=== PATIENT | male | born 1945 | race Caucasian/White ===

== ENCOUNTER → 2018-07-14 10:21 | Outpatient (CLI) | payer MEDICARE, SELFPAY ==
--- NOTE | 2018-07-14 10:16 | DI.REPORT_ITS ---
SYMPTOM/DIAGNOSIS: RIGHT KNEE PAIN RIGHT KNEE: 07/14 Two views were obtained. There may be mild narrowing of the medial tibial femoral cartilaginous joint space. Minimal hypertrophic spurring of the bones of the knee noted. 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
== END ==
PROVIDERS: PCP General Practice; Visit Provider Physician Assistant
DX: M25.561 Pain in right knee (principal); M17.11 Unilateral primary osteoarthritis, right knee; M23.91 Unspecified internal derangement of right knee
CPT/HCPCS: 73560; 99213

== ENCOUNTER → 2018-07-20 01:37 | Outpatient (CLI) | payer MEDICARE, SELFPAY ==
--- NOTE | 2018-07-20 10:15 | DI.REPORT_ITS ---
SYMPTOMS/DIAGNOSIS: RT INTERNAL DERANGEMENT, PAIN MRI OF THE RIGHT KNEE: Comparison is made with plain films dated . Fat suppressed T 2 axial, proton density and fat suppressed T 2 sagittal and coronal and proton density oblique sagittal sequences were performed. The anterior cruciate ligament is disrupted. The tibia is abnormally subluxed anteriorly with respect to the distal femur. The posterior cruciate ligament and medial and lateral collateral ligaments appear intact. There is mild edema in the lower quadriceps tendon and near the lower pole of the patella, in the proximal patellar tendon which could indicate partial tears. There is some anterior soft tissue edema. There is some thinning of the lateral patellar facet cartilage but no focal defect or evidence of fracture. The lateral meniscus shows degenerative change. The medial meniscus is grossly abnormal. No history of previous surgery is given. There is a horizontally oriented tear in the posterior horn of the medial meniscus extending to the inferior articular surface. The medial meniscus appears somewhat diminutive which could indicate degenerative change. No definite displaced fragment is seen. There is cartilage irregularity of the medial femoral condyle. IMPRESSION: Full thickness tear of the anterior cruciate ligament. Inferior surfacing horizontal tear of the posterior horn and body of the medial meniscus superimposed. Question of mild partial tear vs tendinosis of the distal quadriceps and proximal patellar tendons.
== END ==
PROVIDERS: PCP General Practice; Visit Provider Orthopaedic Surgery
DX: M25.561 Pain in right knee (principal); M23.91 Unspecified internal derangement of right knee; S83.521A Sprain of posterior cruciate ligament of right knee, initial encounter; S83.511A Sprain of anterior cruciate ligament of right knee, initial encounter
CPT/HCPCS: 73721

== ENCOUNTER → 2018-07-22 09:15 | Outpatient (CLI) | payer MEDICARE, SELFPAY | PROVIDERS: PCP General Practice; Visit Provider Orthopaedic Surgery | DX: M25.511 Pain in right shoulder (principal); S83.241D Other tear of medial meniscus, current injury, right knee, subsequent encounter; X58.XXXD Exposure to other specified factors, subsequent encounter; M75.81 Other shoulder lesions, right shoulder; I10 Essential (primary) hypertension | CPT/HCPCS: 99213 ==

== ENCOUNTER 2018-08-06 08:56 | Outpatient (CLI) | payer MEDICARE, SELFPAY ==
[2018-08-06 09:26] LABS: HCT 37.8 % (40.0-50.0); HGB 13.1 g/dL (13.5-17.5); Mean Corp. HGB Concentration 34.7 g/dL (32.0-36.0); Mean Corpuscular Hemoglobin 29.4 pg (27.0-33.0); Mean Corpuscular Volume 84.9 fL (80-95); Mean Platelet Volume 8.3 fL (8.0-11.0); Platelet Count 212 x1000/uL (130-400); RBC 4.45 m/cumm (4.50-6.00); RBC Distribution Width 14.2 % (11.8-14.1); White Blood Cell Count 4.71 k/cumm (4.4-10.8)
[2018-08-06 10:44] LABS: ALT 32 U/L (12-78); AST 31 U/L (15-37); Albumin 3.8 g/dL (3.4-5.0); Alkaline Phosphatase 76 U/L (46-116); Anion Gap 6.7 mmol/L (3-11); BUN 12 mg/dL (7-18); Bilirubin, Total 0.4 mg/dL (0.2-1.0); CO2 26.3 mmol/L (21.0-32.0); CREATININE 1.05 mg/dL (0.70-1.30); Calcium 8.6 mg/dL (8.5-10.1); Chloride 94 mmol/L (98-107); Glucose 91 mg/dL (70-100); Potassium 4.7 mmol/L (3.5-5.1); Sodium 127 mmol/L (136-145); Total Protein 6.6 g/dL (6.4-8.2)
== END 2018-08-06 09:16 ==
PROVIDERS: PCP General Practice; Referring Provider Neurological Surgery; Visit Provider General Practice
DX: Z01.818 Encounter for other preprocedural examination (principal); Z01.812 Encounter for preprocedural laboratory examination; R69 Illness, unspecified
CPT/HCPCS: 36415; 80053; 85027

== ENCOUNTER 2018-09-29 01:09 | Outpatient (CLI) | payer MEDICARE, SELFPAY ==
--- NOTE | 2018-09-29 12:00 | DI.US_ITS ---
SYMPTOM/DIAGNOSIS: SUPRAPUBIC MASS, ? BLADDER MASS RENAL ULTRASOUND: The right kidney measures 10.9 by 4.7 by 4.8 cm. The left kidney measures 10.1 by 5.4 by 5.2 cm. The ureteral jets were not visualized. The prostatic volume is 29 cc's. The prevoid bladder contains 121 cc's. The postvoid bladder contains 6 cc's. A scan of the right lower quadrant revealed no obvious mass or other abnormality. If there is further specific clinical question regarding the status of this patient, then further assessment with CT is suggested. SUMMARY: The prostatic volume is top limits of normal in size. The examination is otherwise unremarkable.
== END 2018-09-29 01:29 ==
PROVIDERS: PCP General Practice; Visit Provider General Practice
DX: R10.31 Right lower quadrant pain (principal); R19.03 Right lower quadrant abdominal swelling, mass and lump
CPT/HCPCS: 76770

== ENCOUNTER 2018-10-11 06:36 | Day surgery (SDC) | payer MEDICARE, SELFPAY ==
--- NOTE | 2018-10-09 09:09 | POEE_ITS ---
History of Present Illness Chief Complaint: Progressive decreased vision, left eye Narrative: The patient is a 73-year-old male with history of progressive decreased vision in both eyes at both distance and near. On examination he was noted to have moderate bilateral nuclear cataracts with posterior subcapsular cataract of the right eye. He was significantly symptomatically he desired cataract surgery and attempt to improve and maximize his vision. NOTE: The Chief Complaint, HPI, Past Medical History, Past Surgical History, Family History, Social History, Medications, and complete Ophthalmic Exam with detailed Assessment and Plan have already been documented in the patient's outpatient ophthalmic record and are not covered again in detail here. [facility] Family History Mother No problems noted. Father Heart disease Medical History Nuclear sclerotic cataract of right eye (Acute) Nuclear sclerotic cataract of left eye (Acute) Age-related macular degeneration, dry, left eye (Chronic) Age-related macular degeneration, dry, right eye (Chronic) Posterior subcapsular age-related cataract, right eye (Acute) Anxiety Chronic low back pain Essential hypertension Gastroesophageal reflux disease Spinal stenosis Social History Smoking/Tobacco Use Status: Former Tobacco Use Surgical History Colonoscopy - IV Sedation Repair of inguinal hernia Meds Home Medications Medication Instructions Recorded Confirmed Type aspirin [Aspir-81] 1 tab PO DAILY 07/15/13 10/05/18 History fluticasone 1 spry NS HS PRN 07/15/13 10/07/18 History lisinopril [Prinivil] 5 mg PO DAILY 07/15/13 10/05/18 History lorazepam 0.5 mg PO HS PRN 07/15/13 10/05/18 History fluoxetine [Prozac] 40 mg PO DAILY tab-cap 05/23/15 10/07/18 History omeprazole 20 mg PO BID 05/23/15 10/05/18 History doxazosin 4 mg PO HS 12/31/15 10/05/18 History docusate sodium [Stool Softener] 100 mg PO DAILY PRN tab-cap 01/16/16 10/07/18 History omega-3 fatty acids-fish oil [Fish 1 ea PO DAILY 03/04/17 10/07/18 History Oil] acetaminophen [Mapap Extra 1,000 mg PO TID #180 tab 05/06/17 10/07/18 Rx Strength] Allergies Allergy/AdvReac Type Severity Reaction Status Date / Time No Known Allergies Allergy Unverified 07/22/18 09:20 Exam OCULAR EXAM:: Visual acuity at distance: Best corrected visual acuity is 20/50 OD, 20/50 OS. Pupils: Pupils equal, round, and reactive without afferent pupillary defect IOP: 11 OD 13 OS Extraocular Motility: Normal Pertinent Slit Lamp Findings: Significant for pupils dilating to 6 mm OU. 2+ nuclear cataract OU. 1+ posterior subcapsular cataract OS. Dilated Funduscopic Examination: Disc cupping is 0.2 OD 0.1 OS with normal vessels. There are macular RPE changes with central pigmentary clumping OU. Peripheral retina and vitreous is normal. BRIGHTNESS ACUITY TESTING (BAT):: Off left eye 20/50 Low: Left eye 20/50 Medium: 20/60 High: 20/70 Assessment and Plan (1) Nuclear sclerotic cataract of left eye: Current visit: No Status: Acute Assessment: Visually significant cataract, left eye. Plan: Cataract extraction with intraocular lens implantation, left eye (2) Age-related macular degeneration, dry, left eye: Current visit: No Status: Chronic Assessment: Nonexudative macular degeneration, left eye, with pigmentary changes and clumping in the central macula. No evidence of exudative features. Plan: Preoperative discussion was undertaken with the patient, and he understands that postoperative visual acuity will be limited by the presence of pre-existing maculopathy. Note: NOTE:: The details of the planned surgery, including the risks, indications, limitations,expectations,outcome and possible complications were explained to the patient. The patient understands the complications including, but not limited to: infection, hemorrhage, posterior dislocation of the lens or nuclear fragments which may require the intervention of a vitreoretinal surgeon, possible loss of the eye, or from anesthetic complications. The patient has been made aware of the option of not having surgery, that vision following surgery may not be equal to that prior to surgery, and that the planned surgery may not achieve the intended results. Following this discussion, which the patient appeared to understand, the patient wishes to proceed with cataract surgery with lens implantation of the affected eye to improve and maximize vision.
[2018-10-11 07:00] VITALS: BP 122/72; PULSE 79; RESP 16; TEMP 35.9; O2SAT 98
[2018-10-11] MEDS: Lidocaine 2% Jelly 6 ML SYR (08:07)
[2018-10-11] MEDS: Balanced Salt Soln.-PLUS 500 ML BAG (08:12)
[2018-10-11] MEDS: Lidocaine 1% Pres-Free 5 ML VIAL (08:12)
[2018-10-11] MEDS: Povidone-Iodine Ophth 30 ML BTL (08:29)
--- NOTE | 2018-10-11 08:34 | W.PM.DSUDISC ---
Discharge Plan Discharge Details Reason For Visit: CATARACT OS Attending Provider: Cornelius Ness Primary Care Provider: Lavon Dunbar Home Meds and New Rx's Prescriptions: No Action fluoxetine [Prozac] 40 MG capsule 40 mg PO DAILY RF: 0 omeprazole 20 MG capsule,delayed release(DR/EC) 20 mg PO BID RF: 0 docusate sodium [Stool Softener] 100 MG capsule 100 mg PO DAILY PRNRF: 0 lisinopril [Prinivil] 10 MG tablet 5 mg PO DAILY RF: 0 aspirin [Aspir-81] 81 MG tablet,delayed release (DR/EC) 1 tab PO DAILY RF: 0 lorazepam 0.5 MG tablet 0.5 mg PO HS PRNRF: 0 fluticasone 16 GM spray,suspension 1 spry NS HS PRNRF: 0 doxazosin 4 MG tablet 4 mg PO HS RF: 0 omega-3 fatty acids-fish oil [Fish Oil] 1 EACH capsule 1 ea PO DAILY RF: 0 acetaminophen [Mapap Extra Strength] 500 MG tablet 1,000 mg PO TID Qty: 180 RF: 0 Discharge Instructions Stand Alone Forms: Post-op Topical Cataract, Raul Hoyos (DSU) DS: Diagnosis Discharge Diagnosis (1) Nuclear sclerotic cataract of left eye: Status: Resolved (2) Age-related macular degeneration, dry, left eye: Status: Chronic (3) Status post cataract extraction and insertion of intraocular lens of left eye: Status: Chronic
--- NOTE | 2018-10-11 08:35 | W.PM.OP ---
Date of service: 10/11/18 Time of Service: 08:35 Operative Note PRE-OP DIAGNOSIS: Cataract, left eye POST-OP DIAGNOSIS: same PROCEDURE: Cataract extraction using phacoemulsification with intraocular lens implant, left eye SURGEON: Cornelius Ness ANESTHESIA: MAC and local (sub-tenon's anesthetic infiltration) PATHOLOGY: none sent COMPLICATIONS: None Patient was transported to: same day Patient's condition: stable Implants: Miko and Miko Vision / [employer] Tecnis [id number] Indications: Progressive decreased vision due to cataract, left eye Procedure Description: CATARACT SURGERY OPERATIVE REPORT PREOPERATIVE DIAGNOSIS: Nuclear cataract, left eye, symptomatic POSTOPERATIVE DIAGNOSIS: Same OPERATION: Cataract extraction using phacoemulsification with posterior chamber intraocular lens implant, left eye. IOL: IOL Frame And Scrap Crusher/Model: J&J Vision / SAMANTHA Tecnis [id number] IOL Power: + 21.0 diopters IOL Serial Number: [id number] Optic Diameter: 6.0mm Haptic/Overall Diameter: 13.0mm PHACO INFO: Sy Mark[employer]on Vision System with OZil and Active Fluidics Cumulative Dispersed Energy (CDE): 8.32 seconds SURGEON: Cornelius Ness MD, CONNOR ANESTHESIA: Monitored Anesthesia Care (MAC), with local sub-tenon's anesthetic infiltration COMPLICATIONS: None SPECIMENS: None INDICATIONS FOR PROCEDURE: The patient is a 73-year-old gentleman with history of progressive decreased vision in his right eye secondary to the development of nuclear cataract. He was significantly symptomatic that he desired cataract surgery and attempt to improve and maximize his vision. PROCEDURE: The correct surgical eye was identified and marked as the left eye and the pupil was dilated in the preoperative area using mydriatics, cycloplegics, and NSAIDS (except in aspirin allergic patients). The dilated pupil size was 7.0 mm. Oral sedation was administered in the form of an Imprimis MKO Melt (midazolam 3mg/ketamine 25mg/ondansetron 2mg). The patient was brought to the operating room where cardiopulmonary monitoring was instituted and surgical time-out was performed, confirming the correct operative eye and IOL power. Topical anesthesia was administered and ophthalmic povidone-iodine 5% was instilled into the conjunctival fornices. Lidocaine gel was applied to the cornea and the juan c-ocular area was prepped with Betadine 10% solution and draped in the usual sterile fashion for intraocular surgery. Steri-strips were used to cover the lashes and lid margins and an adhesive eye drape was placed. Care was taken to isolate the lashes and lid margins under the Steri-strips and adhesive eye drape. A lid speculum was placed between the lids of the operative eye and the Yolanda-Vladimir operating microscope was maneuvered into position. Evens scissors were then used to make a conjunctival buttonhole approximately 6mm posterior to the limbus in the inferonasal quadrant. Blunt dissection was carried out to expose bare sclera, and a blunt-tipped sub-tenon?s anesthesia cannula was introduced and passed posteriorly along the globe where non-preserved plain lidocaine was injected into posterior sub-Tenon?s space. A sideport knife was used to make a paracentesis port at the 12:00 postion and the anterior chamber was filled with Healon GV. A 2.4mm keratome knife was used to create a half-thickness groove at the limbus and then to construct a three-plane near-clear corneal tunnel extending 2.0mm into clear cornea at the 3:00 position. A flap was raised on the anterior capsule and capsulorhexis forceps were used to complete a continuous curvilinear capsulorhexis of 5.0 mm. Capsulorhexis was challenging as there was constant patient movement. Balanced salt solution was then used to perform cortical cleaving hydrodissection and nuclear hydrodelineation until the lens could be freely rotated within the capsular bag. The lens nucleus was then disassembled and removed within the capsular bag and iris plane using phacoemulsification. Residual cortical material was removed using the 45-degree angled silicone I/A tip with 0.3mm port. The posterior capsule was carefully polished to remove as much residual lens epithelial cells as safely possible. The capsular bag was then inflated and the anterior chamber deepened with viscoelastic. The lens implant described above was inserted into the capsular bag using the SAMANTHA [place] Injector. A Kuglen hook was used to dial the IOL into position. Residual viscoelastic was then removed first from posterior to the IOL, then from the anterior chamber using the I/A handpiece. The lens implant was noted to center nicely within the capsular bag. The incisions were stromally hydrated, and the anterior chamber was reformed using BSS. Then 0.4cc of moxifloxacin 1.5mg/ml were injected into the capsular bag and anterior chamber. The incisions were checked with a Weck spear and found to be secure. Several drops of ophthalmic povidone-iodine 5% were then applied to the eye followed by two drops of Imprimis combination moxifloxacin/dexamethasone solution. The drapes were removed and a clear plastic protective eye shield was placed over the eye. The patient was then returned to Same Day Surgery in stable condition.
--- NOTE | 2018-10-11 08:38 | ROE_ITS ---
Date of service: 10/11/18 Time of Service: 08:35 Operative Note PRE-OP DIAGNOSIS: Cataract, left eye POST-OP DIAGNOSIS: same PROCEDURE: Cataract extraction using phacoemulsification with intraocular lens implant, left eye SURGEON: Cornelius Ness ANESTHESIA: MAC and local (sub-tenon's anesthetic infiltration) PATHOLOGY: none sent COMPLICATIONS: None Patient was transported to: same day Patient's condition: stable Implants: Miko and Miko Vision / [employer] Tecnis [id number] Indications: Progressive decreased vision due to cataract, left eye Procedure Description: CATARACT SURGERY OPERATIVE REPORT PREOPERATIVE DIAGNOSIS: Nuclear cataract, left eye, symptomatic POSTOPERATIVE DIAGNOSIS: Same OPERATION: Cataract extraction using phacoemulsification with posterior chamber intraocular lens implant, left eye. IOL: IOL Patient Insurance Clerk/Model: J&J Vision / SAMANTHA Tecnis [id number] IOL Power: + 21.0 diopters IOL Serial Number: [id number] Optic Diameter: 6.0mm Haptic/Overall Diameter: 13.0mm PHACO INFO: Sy [employer] Vision System with OZil and Active Fluidics Cumulative Dispersed Energy (CDE): 8.32 seconds SURGEON: Cornelius Ness MD, CONNOR ANESTHESIA: Monitored Anesthesia Care (MAC), with local sub-tenon's anesthetic infiltration COMPLICATIONS: None SPECIMENS: None INDICATIONS FOR PROCEDURE: The patient is a 73-year-old gentleman with history of progressive decreased vision in his right eye secondary to the development of nuclear cataract. He was significantly symptomatic that he desired cataract surgery and attempt to improve and maximize his vision. PROCEDURE: The correct surgical eye was identified and marked as the left eye and the pupil was dilated in the preoperative area using mydriatics, cycloplegics, and NSAIDS (except in aspirin allergic patients). The dilated pupil size was 7.0 mm. Oral sedation was administered in the form of an Imprimis MKO Melt (midazolam 3mg/ketamine 25mg/ondansetron 2mg). The patient was brought to the operating room where cardiopulmonary monitoring was instituted and surgical time-out was performed, confirming the correct operative eye and IOL power. Topical anesthesia was administered and ophthalmic povidone-iodine 5% was instilled into the conjunctival fornices. Lidocaine gel was applied to the cornea and the juan c-ocular area was prepped with Betadine 10% solution and draped in the usual sterile fashion for intraocular surgery. Steri-strips were used to cover the lashes and lid margins and an adhesive eye drape was placed. Care was taken to isolate the lashes and lid margins under the Steri-strips and adhesive eye drape. A lid speculum was placed between the lids of the operative eye and the Yolanda-Vladimir operating microscope was maneuvered into position. Evens scissors were then used to make a conjunctival buttonhole approximately 6mm posterior to the limbus in the inferonasal quadrant. Blunt dissection was carried out to expose bare sclera, and a blunt-tipped sub-tenon? s anesthesia cannula was introduced and passed posteriorly along the globe where non-preserved plain lidocaine was injected into posterior sub-Tenon?s space. A sideport knife was used to make a paracentesis port at the 12:00 postion and the anterior chamber was filled with Healon GV. A 2.4mm keratome knife was used to create a half-thickness groove at the limbus and then to construct a three-plane near-clear corneal tunnel extending 2.0mm into clear cornea at the 3:00 position. A flap was raised on the anterior capsule and capsulorhexis forceps were used to complete a continuous curvilinear capsulorhexis of 5.0 mm. Capsulorhexis was challenging as there was constant patient movement. Balanced salt solution was then used to perform cortical cleaving hydrodissection and nuclear hydrodelineation until the lens could be freely rotated within the capsular bag. The lens nucleus was then disassembled and removed within the capsular bag and iris plane using phacoemulsification. Residual cortical material was removed using the 45-degree angled silicone I/A tip with 0.3mm port. The posterior capsule was carefully polished to remove as much residual lens epithelial cells as safely possible. The capsular bag was then inflated and the anterior chamber deepened with viscoelastic. The lens implant described above was inserted into the capsular bag using the SAMANTHA [place] Injector. A Kuglen hook was used to dial the IOL into position. Residual viscoelastic was then removed first from posterior to the IOL, then from the anterior chamber using the I/A handpiece. The lens implant was noted to center nicely within the capsular bag. The incisions were stromally hydrated , and the anterior chamber was reformed using BSS. Then 0.4cc of moxifloxacin 1.5mg/ml were injected into the capsular bag and anterior chamber. The incisions were checked with a Weck spear and found to be secure. Several drops of ophthalmic povidone-iodine 5% were then applied to the eye followed by two drops of Imprimis combination moxifloxacin/dexamethasone solution. The drapes were removed and a clear plastic protective eye shield was placed over the eye. The patient was then returned to Same Day Surgery in stable condition.
[2018-10-11 09:09] VITALS: BP 127/74; PULSE 57; RESP 16; TEMP 37; O2SAT 96
== END 2018-10-11 09:10 | disposition home or self-care (01) ==
LOC: SUR 06:39
PROVIDERS: PCP General Practice; Visit Provider Ophthalmology
PROC: (CPT 66984; principal; 2018-10-11 08:30)
DX: H25.12 Age-related nuclear cataract, left eye (principal); I10 Essential (primary) hypertension; K21.9 Gastro-esophageal reflux disease without esophagitis
CPT/HCPCS: 66984; V2632

== ENCOUNTER 2018-10-25 07:12 | Day surgery (SDC) | payer MEDICARE, SELFPAY ==
--- NOTE | 2018-10-23 08:04 | W.PIPPEYE ---
History of Present Illness Chief Complaint: Progressive decreased vision, right eye Narrative: Patient is a 73-year old male with history of progressive decreased vision in both eyes at both distance and near. He notes significant difficulty with blurred vision at distance. On examination he was noted to have bilateral nuclear cataracts, with posterior subcapsular cataract of the right eye. He also has a history of macular degeneration. The option of cataract surgery was offered to the patient and he wished to proceed, understanding that postoperative visual acuity will be limited by the presence of his pre-existing maculopathy. NOTE: The Chief Complaint, HPI, Past Medical History, Past Surgical History, Family History, Social History, Medications, and complete Ophthalmic Exam with detailed Assessment and Plan have already been documented in the patient's outpatient ophthalmic record and are not covered again in detail here. [facility] Family History Mother No problems noted. Father Heart disease Medical History Nuclear sclerotic cataract of right eye (Acute) Age-related macular degeneration, dry, left eye (Chronic) Age-related macular degeneration, dry, right eye (Chronic) Posterior subcapsular age-related cataract, right eye (Acute) Nuclear sclerotic cataract of left eye (Resolved) Anxiety Chronic low back pain Essential hypertension Gastroesophageal reflux disease Spinal stenosis Social History Smoking/Tobacco Use Status: Former Tobacco Use Surgical History Status post cataract extraction and insertion of intraocular lens of left eye (Chronic 10/11/18) Colonoscopy - IV Sedation Repair of inguinal hernia Meds Home Medications Medication Instructions Recorded Confirmed Type aspirin [Aspir-81] 1 tab PO DAILY 07/15/13 10/11/18 History fluticasone 1 spry NS HS PRN 07/15/13 10/11/18 History lisinopril [Prinivil] 5 mg PO DAILY 07/15/13 10/11/18 History lorazepam 0.5 mg PO HS PRN 07/15/13 10/11/18 History fluoxetine [Prozac] 40 mg PO DAILY tab-cap 05/23/15 10/11/18 History omeprazole 20 mg PO BID 05/23/15 10/11/18 History doxazosin 4 mg PO HS 12/31/15 10/11/18 History docusate sodium [Stool Softener] 100 mg PO DAILY PRN tab-cap 01/16/16 10/11/18 History omega-3 fatty acids-fish oil [Fish 1 ea PO DAILY 03/04/17 10/11/18 History Oil] acetaminophen [Mapap Extra 1,000 mg PO TID #180 tab 05/06/17 10/11/18 Rx Strength] Allergies Allergy/AdvReac Type Severity Reaction Status Date / Time No Known Allergies Allergy Unverified 10/11/18 06:55 Exam OCULAR EXAM:: Visual acuity at distance: Corrected to 20/50 right eye, 20/30 left eye. Pupils: Pupils equal, round, and reactive without afferent pupillary defect IOP: 11 OD 13 OS Extraocular Motility: Normal Pertinent Slit Lamp Findings: Significant for pupils dilating to 6 mm OU. 2+ nuclear with 1+ posterior subcapsular cataract, right eye. Well-positioned PCIOL, left eye Dilated Funduscopic Examination: Disc cupping is 0.2 OD 0.1 OS with normal vessels. There are macular pigmentary changes in both eyes with central pigment clumping. Peripheral retina and vitreous are normal OU. 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 BRIGHTNESS ACUITY TESTING (BAT):: Off right eye 20/50 Low: 20/50 Medium: 20/60 High: 20/80 Assessment and Plan (1) Posterior subcapsular age-related cataract, right eye: Current visit: No Status: Acute Assessment: Visually significant cataract, right eye. Plan: Cataract extraction with intraocular lens implantation, right eye (2) Nuclear sclerotic cataract of right eye: Current visit: No Status: Acute Assessment: Visually significant cataract, right eye. Plan: Cataract extraction with intraocular lens implantation, right eye Note: NOTE:: The details of the planned surgery, including the risks, indications,limitations,expectations,outcome and possible complications were explained to the patient. The patient understands the complications including, but not limited to: infection, hemorrhage, posterior dislocation of the lens or nuclear fragments which may require the intervention of a vitreoretinal surgeon, possible loss of the eye, or from anesthetic complications. The patient has been made aware of the option of not having surgery, that vision following surgery may not be equal to that prior to surgery, and that the planned surgery may not achieve the intended results. Following this discussion, which the patient appeared to understand, the patient wishes to proceed with cataract surgery with lens implantation of the affected eye to improve and maximize vision.
--- NOTE | 2018-10-23 08:12 | POEE_ITS ---
History of Present Illness Chief Complaint: Progressive decreased vision, right eye Narrative: Patient is a 73-year old male with history of progressive decreased vision in both eyes at both distance and near. He notes significant difficulty with blurred vision at distance. On examination he was noted to have bilateral nuclear cataracts, with posterior subcapsular cataract of the right eye. He also has a history of macular degeneration. The option of cataract surgery was offered to the patient and he wished to proceed, understanding that postoperative visual acuity will be limited by the presence of his pre-existing maculopathy. NOTE: The Chief Complaint, HPI, Past Medical History, Past Surgical History, Family History, Social History, Medications, and complete Ophthalmic Exam with detailed Assessment and Plan have already been documented in the patient's outpatient ophthalmic record and are not covered again in detail here. [facility] Family History Mother No problems noted. Father Heart disease Medical History Nuclear sclerotic cataract of right eye (Acute) Age-related macular degeneration, dry, left eye (Chronic) Age-related macular degeneration, dry, right eye (Chronic) Posterior subcapsular age-related cataract, right eye (Acute) Nuclear sclerotic cataract of left eye (Resolved) Anxiety Chronic low back pain Essential hypertension Gastroesophageal reflux disease Spinal stenosis Social History Smoking/Tobacco Use Status: Former Tobacco Use Surgical History Status post cataract extraction and insertion of intraocular lens of left eye ( Chronic 10/11/18) Colonoscopy - IV Sedation Repair of inguinal hernia Meds Home Medications Medication Instructions Recorded Confirmed Type aspirin [Aspir-81] 1 tab PO DAILY 07/15/13 10/11/18 History fluticasone 1 spry NS HS PRN 07/15/13 10/11/18 History lisinopril [Prinivil] 5 mg PO DAILY 07/15/13 10/11/18 History lorazepam 0.5 mg PO HS PRN 07/15/13 10/11/18 History fluoxetine [Prozac] 40 mg PO DAILY tab-cap 05/23/15 10/11/18 History omeprazole 20 mg PO BID 05/23/15 10/11/18 History doxazosin 4 mg PO HS 12/31/15 10/11/18 History docusate sodium [Stool Softener] 100 mg PO DAILY PRN tab-cap 01/16/16 10/11/18 History omega-3 fatty acids-fish oil [Fish 1 ea PO DAILY 03/04/17 10/11/18 History Oil] acetaminophen [Mapap Extra 1,000 mg PO TID #180 tab 05/06/17 10/11/18 Rx Strength] Allergies Allergy/AdvReac Type Severity Reaction Status Date / Time No Known Allergies Allergy Unverified 10/11/18 06:55 Exam OCULAR EXAM:: Visual acuity at distance: Corrected to 20/50 right eye, 20/30 left eye. Pupils: Pupils equal, round, and reactive without afferent pupillary defect IOP: 11 OD 13 OS Extraocular Motility: Normal Pertinent Slit Lamp Findings: Significant for pupils dilating to 6 mm OU. 2+ nuclear with 1+ posterior subcapsular cataract, right eye. Well-positioned PCIOL, left eye Dilated Funduscopic Examination: Disc cupping is 0.2 OD 0.1 OS with normal vessels. There are macular pigmentary changes in both eyes with central pigment clumping. Peripheral retina and vitreous are normal OU. 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 BRIGHTNESS ACUITY TESTING (BAT):: Off right eye 20/50 Low: 20/50 Medium: 20/60 High: 20/80 Assessment and Plan (1) Posterior subcapsular age-related cataract, right eye: Current visit: No Status: Acute Assessment: Visually significant cataract, right eye. Plan: Cataract extraction with intraocular lens implantation, right eye (2) Nuclear sclerotic cataract of right eye: Current visit: No Status: Acute Assessment: Visually significant cataract, right eye. Plan: Cataract extraction with intraocular lens implantation, right eye Note: NOTE:: The details of the planned surgery, including the risks, indications, limitations,expectations,outcome and possible complications were explained to the patient. The patient understands the complications including, but not limited to: infection, hemorrhage, posterior dislocation of the lens or nuclear fragments which may require the intervention of a vitreoretinal surgeon, possible loss of the eye, or from anesthetic complications. The patient has been made aware of the option of not having surgery, that vision following surgery may not be equal to that prior to surgery, and that the planned surgery may not achieve the intended results. Following this discussion, which the patient appeared to understand, the patient wishes to proceed with cataract surgery with lens implantation of the affected eye to improve and maximize vision.
[2018-10-25 07:15] VITALS: BP 141/81; PULSE 70; RESP 16; TEMP 36.3; O2SAT 97
[2018-10-25] MEDS: Tropicam./Phenyleph. (1/2.5%) 5 ML BTL OD ×3 (07:30→07:47)
[2018-10-25] MEDS: Tetracaine 0.5% 4 ML BTL OD ×4 (07:30→08:46)
[2018-10-25] MEDS: Lidocaine 2% Jelly 6 ML SYR (08:48)
[2018-10-25] MEDS: Lidocaine 1% Pres-Free 5 ML VIAL (08:53)
[2018-10-25] MEDS: Balanced Salt Soln.-PLUS 500 ML BAG (08:53)
[2018-10-25] MEDS: Povidone-Iodine Ophth 30 ML BTL (09:12)
--- NOTE | 2018-10-25 09:20 | W.PM.DSUDISC ---
Discharge Plan Discharge Details Reason For Visit: CATARACT OD Attending Provider: Cornelius Ness Primary Care Provider: Lavon Dunbar Home Meds and New Rx's Prescriptions: No Action fluoxetine [Prozac] 40 MG capsule 40 mg PO DAILY RF: 0 omeprazole 20 MG capsule,delayed release(DR/EC) 20 mg PO BID RF: 0 docusate sodium [Stool Softener] 100 MG capsule 100 mg PO DAILY PRNRF: 0 lisinopril [Prinivil] 10 MG tablet 5 mg PO DAILY RF: 0 aspirin [Aspir-81] 81 MG tablet,delayed release (DR/EC) 1 tab PO DAILY RF: 0 lorazepam 0.5 MG tablet 0.5 mg PO HS PRNRF: 0 fluticasone 16 GM spray,suspension 1 spry NS HS PRNRF: 0 doxazosin 4 MG tablet 4 mg PO HS RF: 0 omega-3 fatty acids-fish oil [Fish Oil] 1 EACH capsule 1 ea PO DAILY RF: 0 acetaminophen [Mapap Extra Strength] 500 MG tablet 1,000 mg PO TID Qty: 180 RF: 0 Discharge Instructions Stand Alone Forms: Post-op Topical Cataract, Raul Hoyos (DSU) DS: Diagnosis Discharge Diagnosis (1) Posterior subcapsular age-related cataract, right eye: Status: Acute (2) Nuclear sclerotic cataract of right eye: Status: Resolved (3) Status post cataract extraction and insertion of intraocular lens of right eye: Status: Chronic
--- NOTE | 2018-10-25 09:21 | W.PM.OP ---
Date of service: 10/25/18 Time of Service: 09:22 Operative Note DATE OF PROCEDURE: 10/25/18 PRE-OP DIAGNOSIS: Cataract, right eye POST-OP DIAGNOSIS: same SURGEON: Cornelius Ness ANESTHESIA: MAC and local (sub-tenon's anesthetic infiltration) PATHOLOGY: none sent COMPLICATIONS: None Patient was transported to: same day Patient's condition: stable Implants: Miko [employer] Miko Vision / [employer] Tecnis [id number] Indications: Progressive decreased vision due to cataract, right eye Procedure Description: CATARACT SURGERY OPERATIVE REPORT PREOPERATIVE DIAGNOSIS: Nuclear/posterior subcapsular cataract, right eye POSTOPERATIVE DIAGNOSIS: Same OPERATION: Cataract extraction using phacoemulsification with posterior chamber intraocular lens implant, right eye. IOL: IOL Grants Specialist/Model: [employer] Vision / SAMANTHA Tecnis [id number] IOL Power: + 21.50 diopters IOL Serial Number: [id number] Optic Diameter: 6.0mm Haptic/Overall Diameter: 13.0mm PHACO INFO: Sy [employer] Vision System with OZil and Active Fluidics Cumulative Dispersed Energy (CDE): 6.58 seconds SURGEON: Cornelius Ness MD, CONNOR ANESTHESIA: Monitored Anesthesia Care (MAC), with local sub-tenon's anesthetic infiltration COMPLICATIONS: None SPECIMENS: None INDICATIONS FOR PROCEDURE: The patient is a 73-year old male with history of bilateral cataracts. He also has a history of macular degenerative changes. He desired cataract surgery and attempt to improve and maximize his vision. He has already undergone cataract surgery in the left eye on 10/11/2018. Postoperatively, he has not noticed a significant improvement in his vision. The option of postponing surgery on the right eye was given to the patient and he wished to proceed. PROCEDURE: The correct surgical eye was identified and marked as the right eye and the pupil was dilated in the preoperative area using mydriatics and cycloplegics. The dilated pupil size was 6.0 mm. Oral sedation was administered in the form of an Imprimis MKO Melt (midazolam 3mg/ketamine 25mg/ondansetron 2mg). The patient was brought to the operating room where cardiopulmonary monitoring was instituted and surgical time-out was performed, confirming the correct operative eye and IOL power. Topical anesthesia was administered and ophthalmic povidone-iodine 5% was instilled into the conjunctival fornices. Lidocaine gel was applied to the cornea and the juan c-ocular area was prepped with Betadine 10% solution and draped in the usual sterile fashion for intraocular surgery. Steri-strips were used to cover the lashes and lid margins and an adhesive eye drape was placed. Care was taken to isolate the lashes and lid margins under the Steri-strips and adhesive eye drape. A lid speculum was placed between the lids of the operative eye and the Yolanda-Vladimir operating microscope was maneuvered into position. Evens scissors were then used to make a conjunctival buttonhole approximately 6mm posterior to the limbus in the inferonasal quadrant. Blunt dissection was carried out to expose bare sclera, and a blunt-tipped sub-tenon?s anesthesia cannula was introduced and passed posteriorly along the globe where non-preserved plain lidocaine was injected into posterior sub-Tenon?s space. A sideport knife was used to make a paracentesis port at the 7:00 postion and the anterior chamber was filled with Healon GV. A 2.4mm keratome knife was used to create a half-thickness groove at the limbus and then to construct a three-plane near-clear corneal tunnel extending 2.0mm into clear cornea at the 10:00 position. A flap was raised on the anterior capsule and capsulorhexis forceps were used to complete a continuous curvilinear capsulorhexis of 4.8 mm. Balanced salt solution was then used to perform cortical cleaving hydrodissection and nuclear hydrodelineation until the lens could be freely rotated within the capsular bag. The lens nucleus was then disassembled and removed within the capsular bag and iris plane using phacoemulsification. Residual cortical material was removed using the 45-degree angled silicone I/A tip with 0.3mm port. The posterior capsule was carefully polished to remove as much residual lens epithelial cells as safely possible. The capsular bag was then inflated and the anterior chamber deepened with viscoelastic. The lens implant described above was inserted into the capsular bag using the SAMANTHA [place] Injector. A Kuglen hook was used to dial the IOL into position. Residual viscoelastic was then removed first from posterior to the IOL, then from the anterior chamber using the I/A handpiece. The lens implant was noted to center nicely within the capsular bag. The incisions were stromally hydrated, and the anterior chamber was reformed using BSS. Then 0.4cc of moxifloxacin 1.5mg/ml were injected into the capsular bag and anterior chamber. The incisions were checked with a Weck spear and found to be secure. Several drops of ophthalmic povidone-iodine 5% were then applied to the eye followed by two drops of Imprimis combination moxifloxacin/dexamethasone solution. The drapes were removed and a clear plastic protective eye shield was placed over the eye. The patient was then returned to Same Day Surgery in stable condition.
--- NOTE | 2018-10-25 09:25 | ROE_ITS ---
Date of service: 10/25/18 Time of Service: 09:22 Operative Note DATE OF PROCEDURE: 10/25/18 PRE-OP DIAGNOSIS: Cataract, right eye POST-OP DIAGNOSIS: same SURGEON: Cornelius Ness ANESTHESIA: MAC and local (sub-tenon's anesthetic infiltration) PATHOLOGY: none sent COMPLICATIONS: None Patient was transported to: same day Patient's condition: stable Implants: Miko and Miko Vision / [employer] Tecnis [id number] Indications: Progressive decreased vision due to cataract, right eye Procedure Description: CATARACT SURGERY OPERATIVE REPORT PREOPERATIVE DIAGNOSIS: Nuclear/posterior subcapsular cataract, right eye POSTOPERATIVE DIAGNOSIS: Same OPERATION: Cataract extraction using phacoemulsification with posterior chamber intraocular lens implant, right eye. IOL: IOL Crosscutter/Model: J[employer]J Vision / SAMANTHA Tecnis ZCB00 IOL Power: + 21.50 diopters IOL Serial Number: [id number] Optic Diameter: 6.0mm Haptic/Overall Diameter: 13.0mm PHACO INFO: Sy [employer] Vision System with OZil and Active Fluidics Cumulative Dispersed Energy (CDE): 6.58 seconds SURGEON: Cornelius Ness MD, CONNOR ANESTHESIA: Monitored Anesthesia Care (MAC), with local sub-tenon's anesthetic infiltration COMPLICATIONS: None SPECIMENS: None INDICATIONS FOR PROCEDURE: The patient is a 73-year old male with history of bilateral cataracts. He also has a history of macular degenerative changes. He desired cataract surgery and attempt to improve and maximize his vision. He has already undergone cataract surgery in the left eye on 10/11/2018. Postoperatively, he has not noticed a significant improvement in his vision. The option of postponing surgery on the right eye was given to the patient and he wished to proceed. PROCEDURE: The correct surgical eye was identified and marked as the right eye and the pupil was dilated in the preoperative area using mydriatics and cycloplegics. The dilated pupil size was 6.0 mm. Oral sedation was administered in the form of an Imprimis MKO Melt (midazolam 3mg/ketamine 25mg/ ondansetron 2mg). The patient was brought to the operating room where cardiopulmonary monitoring was instituted and surgical time-out was performed, confirming the correct operative eye and IOL power. Topical anesthesia was administered and ophthalmic povidone-iodine 5% was instilled into the conjunctival fornices. Lidocaine gel was applied to the cornea and the juan c-ocular area was prepped with Betadine 10% solution and draped in the usual sterile fashion for intraocular surgery. Steri-strips were used to cover the lashes and lid margins and an adhesive eye drape was placed. Care was taken to isolate the lashes and lid margins under the Steri-strips and adhesive eye drape. A lid speculum was placed between the lids of the operative eye and the Yolanda-Vladimir operating microscope was maneuvered into position. Evens scissors were then used to make a conjunctival buttonhole approximately 6mm posterior to the limbus in the inferonasal quadrant. Blunt dissection was carried out to expose bare sclera, and a blunt-tipped sub-tenon? s anesthesia cannula was introduced and passed posteriorly along the globe where non-preserved plain lidocaine was injected into posterior sub-Tenon?s space. A sideport knife was used to make a paracentesis port at the 7:00 postion and the anterior chamber was filled with Healon GV. A 2.4mm keratome knife was used to create a half-thickness groove at the limbus and then to construct a three-plane near-clear corneal tunnel extending 2.0mm into clear cornea at the 10:00 position. A flap was raised on the anterior capsule and capsulorhexis forceps were used to complete a continuous curvilinear capsulorhexis of 4.8 mm. Balanced salt solution was then used to perform cortical cleaving hydrodissection and nuclear hydrodelineation until the lens could be freely rotated within the capsular bag. The lens nucleus was then disassembled and removed within the capsular bag and iris plane using phacoemulsification. Residual cortical material was removed using the 45-degree angled silicone I/A tip with 0.3mm port. The posterior capsule was carefully polished to remove as much residual lens epithelial cells as safely possible. The capsular bag was then inflated and the anterior chamber deepened with viscoelastic. The lens implant described above was inserted into the capsular bag using the SAMANTHA [place] Injector. A Kuglen hook was used to dial the IOL into position. Residual viscoelastic was then removed first from posterior to the IOL, then from the anterior chamber using the I/A handpiece. The lens implant was noted to center nicely within the capsular bag. The incisions were stromally hydrated , and the anterior chamber was reformed using BSS. Then 0.4cc of moxifloxacin 1.5mg/ml were injected into the capsular bag and anterior chamber. The incisions were checked with a Weck spear and found to be secure. Several drops of ophthalmic povidone-iodine 5% were then applied to the eye followed by two drops of Imprimis combination moxifloxacin/dexamethasone solution. The drapes were removed and a clear plastic protective eye shield was placed over the eye. The patient was then returned to Same Day Surgery in stable condition.
[2018-10-25 09:40] VITALS: BP 140/84; PULSE 64; RESP 16; TEMP 36.2; O2SAT 98
== END 2018-10-25 10:05 | disposition home or self-care (01) ==
LOC: SUR 07:12
PROVIDERS: PCP General Practice; Visit Provider Ophthalmology
PROC: (CPT 66984; principal; 2018-10-25 09:30)
DX: H25.811 Combined forms of age-related cataract, right eye (principal); Z98.42 Cataract extraction status, left eye; Z96.1 Presence of intraocular lens; I10 Essential (primary) hypertension; K21.9 Gastro-esophageal reflux disease without esophagitis
CPT/HCPCS: 66984; V2632

== ENCOUNTER → 2019-04-12 09:23 | Outpatient (BNVA) | payer MEDICARE, OTHER, SELFPAY | PROVIDERS: PCP General Practice; Referring Provider General Practice; Visit Provider Orthopaedic Surgery | DX: S83.241D Other tear of medial meniscus, current injury, right knee, subsequent encounter (principal); M75.121 Complete rotator cuff tear or rupture of right shoulder, not specified as traumatic; M25.511 Pain in right shoulder; M25.561 Pain in right knee; X58.XXXD Exposure to other specified factors, subsequent encounter | CPT/HCPCS: 20610; 99214; J1040 ==

== ENCOUNTER 2019-04-20 11:18 | Day surgery (SDC) | payer MEDICARE, OTHER, SELFPAY ==
[2019-04-20] VITALS (7 sets, daily range): BP systolic 92–158; BP diastolic 50–84; PULSE 43–55; RESP 13–16; TEMP 35.8–36.4; O2SAT 96–99
[2019-04-20] MEDS: Lactated Ringers 1,000 ML 80 ML IV (11:58)
[2019-04-20] MEDS: ceFAZolin 1 GM/50 ML BAG IVPB (12:51)
--- NOTE | 2019-04-20 13:57 | PDOC.DSDIS_ITS ---
Discharge Plan Disposition Patient Disposition: HOME Condition: Good Discharge Details Reason For Visit: Arthroscopy R knee Attending Provider: Odell Krause Primary Care Provider: Lavon Dunbar Home Meds and New Rx's Prescriptions: New ibuprofen 800 mg tablet 800 mg PO TID Qty: 30 RF: 0 oxycodone-acetaminophen 5-325 mg tablet 1 tab PO Q6H PRN (Reason: pain) Qty: 14 RF: 0 No Action fluoxetine [Prozac] 40 MG capsule 40 mg PO DAILY RF: 0 omeprazole 20 MG capsule,delayed release(DR/EC) 20 mg PO HS RF: 0 docusate sodium [Stool Softener] 100 MG capsule 100 mg PO DAILY PRNRF: 0 lisinopril [Prinivil] 10 MG tablet 5 mg PO DAILY RF: 0 aspirin [Aspir-81] 81 MG tablet,delayed release (DR/EC) 1 tab PO DAILY RF: 0 lorazepam 0.5 MG tablet 0.5 mg PO HS PRNRF: 0 fluticasone propionate 16 GM spray,suspension 1 spry NS HS PRNRF: 0 doxazosin 4 MG tablet 4 mg PO HS RF: 0 omega-3 fatty acids-fish oil [Fish Oil] 1 EACH capsule 1 ea PO DAILY RF: 0 acetaminophen [Mapap Extra Strength] 500 MG tablet 1,000 mg PO TID Qty: 180 RF: 0 Discharge Instructions Additional Instructions: Elevate R leg when sitting. Use crutches to walk. Put as much weight on R leg as your pain allows. Discontinue crutches when you can step with full weight on R leg with only mild pain. Apply cryocuff to R knee continuously overnite. Tomorrow, start to use cryocuff 4 times/day for 1 hour each time. Keep dressings dry and intact for 48 hours. After 48 hours, remove dressings, shower and get incisions wet. Leave incisions uncovered when they are dry and sealed. Outpatient physical therapy at [facility] on Thursday for rehab R knee post- arthroscopic partial medial meniscectomy. Follow up with in 2 weeks. Take ibuprofen as prescribed for 10 days to decrease inflammation and swelling. Take oxycodone, if needed, for breakthru pain. 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
[2019-04-20] MEDS: oxyCODONE-CR 10 MG TABCR PO (15:14)
--- NOTE | 2019-04-21 07:49 | ROE_ITS ---
REPORT OF OPERATIVE PROCEDURE DATE OF PROCEDURE April 20, 2019 PREOPERATIVE DIAGNOSIS Internal derangement right knee. POSTOPERATIVE DIAGNOSES Internal derangement right knee due to torn medial meniscus, medial compartment DJD. PROCEDURES Arthroscopy of the right knee with arthroscopic partial right medial meniscectomy, limited chondropla sty medial femoral condyle. ANESTHESIA General, Lavon Stevenson C.R.N.A. SURGEON Odell Krause M.D. INDICATIONS This is a 73-year-old white male who has had a problem with right knee pain and swelling for many mon ths. He only got a temporary benefit from intraarticular steroid injection. Time and physical therapy have not alleviated his pain. In fact, he has difficulty walking because of the pain. Arthroscopy o f his knee was recommended in order to confirm the diagnosis of torn meniscus from clinical exam. Th is would alleviate his pain and restore good function. The risks and complications of the procedure w ere explained to the patient in detail preoperatively. OPERATIVE PROCEDURE The patient was taken to the Operating Room on 04/20/19. He was placed supine on the operating table and general anesthetic was administered. The right thigh was placed in the arthroscopic leg lennon a nd the right knee was prepped and draped free in the usual sterile fashion. Arthroscopic portals wer e established. The right knee was inflated with normal saline solution using the arthroscopy pump an d then routine arthroscopic examination proceeded. Intraoperative photographs were obtained to docum ent pertinent findings. Upon entering the medial compartment, he was noted to have a complex tear of the medial meniscus. It began proximally at the junction and anterior third posterior two thirds and extended posteriorly, b ut not involving the posterior horn of the meniscus. It was a complex tear with a horizontal cleavage component to it. 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 Using the high radiofrequency electrocautery wand, I debrided the torn meniscus co mpletely back down to a stable rim. The remaining medial meniscus was probed after resection, it was fully stable. I performed a very limited chondroplasty to debride loose articular cartilage from the medial femoral condyle. Intracondylar notch showed intact anterior and posterior cruciate ligaments. The lateral compartment showed articular surfaces. The lateral meniscus showed no tears and was stabl e to probing under direct vision. The suprapatellar pouch was clear. There was some mild synovitis involving the medial gutter and this was debrided using the high radiofrequency electrocautery wand. The patellofemoral joint was visualized after the limited synovectomy and the patellar was tracking w ell. There was no arthritis in the patellofemoral joint. At this point, the knee was copiously irrigated with saline solution using the arthroscopy pump until the outflow was clear. Then, 20 cc of 0.5% Marcaine with Epinephrine solution, along with 4 mg of Mo rphine were instilled into the right knee and all instruments were removed from the knee. The arthr oscopy portals were infiltrated with 0.5% Marcaine with Epinephrine solution and were approximated wi th interrupted #4-0 Nylon sutures. Sterile dressings were applied of Xeroform gauze, sterile gauze 4 x4's, ABD pads and wrapped with 6-inch Matt bandages. The patient tolerated the procedure well. His anesthesia was reversed without complication. Blood lo ss was minimal. The patient was discharged to the Recovery Room in good condition. The patient was discharged home from Day Surgery Unit when fully recovered from his general anesthesi a. He was given instructions to elevate his right leg when sitting. He is to use the Cryo/Cuff to th e right knee continuously overnight. Tomorrow, he will start using his Cryo/Cuff four times a day for an hour each time. He is to use crutches to walk, weightbearing as tolerated to the right leg. He may discontinue the cr utches when he can step fully on his right leg with minimal pain. He may remove his dressings after 48 hours, shower and get his incisions wet. He can leave the incisions uncovered when they are dry and sealed. He is given a prescription for inflammation and swelling of ibuprofen 800 mg p.o. t.i.d. for 10 days. He is given a prescription for breakthrough pain of oxycodone with APAP 5/325 1 tablet every six hour s as needed. He will attend physical therapy for rehab of his right knee starting on Thursday04/22/19. He will followup with Dr. Krause in two weeks.
== END 2019-04-20 16:50 | disposition home or self-care (01) ==
PROVIDERS: PCP General Practice; Visit Provider Orthopaedic Surgery
PROC: (CPT 29870; principal; 2019-04-20 13:00)
DX: S83.231A Complex tear of medial meniscus, current injury, right knee, initial encounter (principal); X58.XXXA Exposure to other specified factors, initial encounter; M17.11 Unilateral primary osteoarthritis, right knee; M65.9 Synovitis and tenosynovitis, unspecified; I10 Essential (primary) hypertension; K21.9 Gastro-esophageal reflux disease without esophagitis
CPT/HCPCS: 29881; E0114; J0690; J1100; J1885; J2250; J2405; J3010

== ENCOUNTER → 2019-05-04 09:07 | Outpatient (BNVA) | payer MEDICARE, OTHER, SELFPAY | PROVIDERS: PCP General Practice; Referring Provider General Practice; Visit Provider Orthopaedic Surgery | DX: M25.561 Pain in right knee (principal); M25.461 Effusion, right knee; Z98.890 Other specified postprocedural states | CPT/HCPCS: 20610; J1040 ==

== ENCOUNTER → 2019-06-01 09:03 | Outpatient (BNVA) | payer MEDICARE, OTHER, SELFPAY | PROVIDERS: PCP General Practice; Referring Provider General Practice; Visit Provider Orthopaedic Surgery | DX: M25.561 Pain in right knee (principal); Z47.89 Encounter for other orthopedic aftercare ==

== ENCOUNTER → 2019-07-14 10:24 | Outpatient (BNVA) | payer MEDICARE, OTHER, SELFPAY | PROVIDERS: PCP General Practice; Referring Provider General Practice; Visit Provider Physical Therapy Assistant | DX: K40.90 Unilateral inguinal hernia, without obstruction or gangrene, not specified as recurrent (principal); I10 Essential (primary) hypertension | CPT/HCPCS: 99213 ==

== ENCOUNTER → 2019-07-20 09:10 | Outpatient (BNVA) | payer MEDICARE, OTHER, SELFPAY | PROVIDERS: PCP General Practice; Referring Provider General Practice; Visit Provider Orthopaedic Surgery | DX: M70.51 Other bursitis of knee, right knee (principal); M25.561 Pain in right knee; Z47.89 Encounter for other orthopedic aftercare; I10 Essential (primary) hypertension | CPT/HCPCS: 20610; 99213; J1030 ==

== ENCOUNTER 2019-07-26 07:12 | Day surgery (SDC) | payer MEDICARE, OTHER, SELFPAY ==
[2019-07-26] VITALS (14 sets, daily range): BP systolic 140–178; BP diastolic 63–94; PULSE 52–671; RESP 10–16; TEMP 36.4–36.8; O2SAT 96–100
[2019-07-26] MEDS: Lactated Ringers 1,000 ML 80 ML IV (08:20)
--- NOTE | 2019-07-26 09:00 | PDOC.DSDIS_ITS ---
Discharge Plan Disposition Patient Disposition: HOME Condition: Good Discharge Details Reason For Visit: Right inguinal hernia repair Attending Provider: Fartun Lai Primary Care Provider: Lavon Dunbar Home Meds and New Rx's Prescriptions: Continued ibuprofen 400 mg tablet 400 mg PO BID RF: 0 fluoxetine [Prozac] 40 MG capsule 40 mg PO DAILY RF: 0 omeprazole 20 MG capsule,delayed release(DR/EC) 20 mg PO HS RF: 0 docusate sodium [Stool Softener] 100 MG capsule 100 mg PO DAILY PRNRF: 0 lisinopril [Prinivil] 10 MG tablet 5 mg PO DAILY RF: 0 aspirin [Aspir-81] 81 MG tablet,delayed release (DR/EC) 1 tab PO DAILY RF: 0 lorazepam 0.5 MG tablet 0.5 mg PO HS PRNRF: 0 fluticasone propionate 16 GM spray,suspension 1 spry NS HS PRNRF: 0 doxazosin 4 MG tablet 4 mg PO HS RF: 0 Fish Oil 1 EACH capsule 1 ea PO DAILY RF: 0 Discharge Instructions Additional Instructions: The top bandage can be removed tomorrow. The steri strips will usually stick for about a week. When the edges start to curl up, they can be removed. It is okay to shower tomorrow, the water can run over the steri strips Do not swim or soak in a tub for two weeks Call for any concerns including fever, increased pain, vomiting, incision redness or drainage. Do not lift more than 15 pounds for four weeks. Walking and stairs are fine. Do not drive if on narcotic pain meds or if limited by pain. May use Tylenol alternating with ibuprofen for pain control. Ice is also an option. The maximum dose for Tylenol is 4000 mg/day. May use ibuprofen 800 mg every 8 hours as needed. If concerned about constipation, you may use a stool softener or milk of magnesia. Referrals: Fartun Lai MD [ [facility] STAFF PHYSICIAN] - (Return for a postop visit in 10-14 days) Activity:: Do not lift more than 15 pounds for one month Remove Dressings/Wound Care:: 24 hours Shower/Bathe:: 24 hours Diet:: As Tolerated Discharge Orders Discharge Orders: Discharge Order (Routine); Ordered 07/26/19 Ordered By: Fartun Lai DS: Diagnosis Discharge Diagnosis (1) Inguinal hernia: Status: Acute (2) S/P right inguinal hernia repair:
[2019-07-26] MEDS: ceFAZolin 2 GM/50 ML BAG IVPB (09:05)
[2019-07-26] MEDS: Bupivacaine 0.25% Pres-Free 30 ML VIAL (09:20)
[2019-07-26] MEDS: Bupivacaine LIPOSOME/PF 133 MG/10 ML VIAL IJ (09:20)
[2019-07-26] MEDS: fentaNYL 100 MCG/2 ML VIAL IVP ×2 (10:53→11:08)
[2019-07-26] MEDS: Normal Saline Flush 10 ML SYR IV (11:18)
[2019-07-26] MEDS: HYDROmorphone 2 MG/ML VIAL IVP ×2 (11:18→11:37)
[2019-07-26] MEDS: HYDROcodone 5/Acetaminophen 325 TAB PO (12:57)
--- NOTE | 2019-07-27 07:03 | ROE_ITS ---
REPORT OF OPERATIVE PROCEDURE DATE OF PROCEDURE July 26, 2019 PREOPERATIVE DIAGNOSIS Right inguinal hernia. POSTOPERATIVE DIAGNOSIS Direct right inguinal hernia. PROCEDURE Right inguinal hernia repair with mesh. SURGEON Fartun Lai M.D. SUPER[employer]OR [employer] Braulio Aguila ANESTHESIA Local, TAP block and general. INDICATIONS This is a 74-year-old man who has noticed a bulge in his right groin that has increased in size over the past few years and now bothers him on a regular basis. On examination, he has a reducible right inguinal hernia. The patient reports a prior right inguinal hernia repair, although there is not a visible scar on preoperative examination. PROCEDURE DESCRIPTION The patient was placed supine on the operating table. After induction of general anesthetic had a TAP block placed. His right groin was then prepped and draped sterilely. The skin between the ASIS and pubic tubercle was infiltrated with local anesthetic. The subcutaneous tissue was divided with cautery down to the external oblique fascia. Again there was no evidence of previous surgery, including no scarring or mesh noted in these tissue planes. A small incision was made in the external oblique fascia, which was then extended bluntly through the internal ring and laterally as well. The spermatic cord was encircled at the level of the pubic tubercle with a Lawrence drain. The patient had a large direct hernia with the floor of the inguinal canal essentially being completely involved. The hernia sac was dissected off of the spermatic cord. The floor of the inguinal canal was then sutured with interrupted #2-0 Prolene sutures to keep the hernia sac reduced. The spermatic cord was carefully inspected and revealed no evidence of an indirect hernia sac. A 3x6 sheet of mesh was trimmed to the proper size and placed on the floor of the inguinal canal in Cristina fashion. This was sutured with a #2-0 Prolene, again in Cristina fashion. The tail ends had been wrapped around the cord structures and were confirmed to not be too tight around the cord. There was good hemostasis. The external oblique fascia was closed with a running #3-0 Vicryl stitch, as was Amanda's fascia. He tolerated the procedure well and was stable to recovery. CC: Lavon Dunbar M.D.
== END 2019-07-26 13:33 | disposition home or self-care (01) ==
PROVIDERS: PCP General Practice; Visit Provider Surgery
PROC: (CPT 49520; principal; 2019-07-26 09:00)
DX: K40.91 Unilateral inguinal hernia, without obstruction or gangrene, recurrent (principal); G89.18 Other acute postprocedural pain; I10 Essential (primary) hypertension; K21.9 Gastro-esophageal reflux disease without esophagitis
CPT/HCPCS: 49520; 76942; C1781; J0690; J1100; J2405; J3010

== ENCOUNTER 2019-08-08 00:31 | Outpatient (CLI) | payer MEDICARE, OTHER, SELFPAY ==
--- NOTE | 2019-08-08 09:17 | DI.CT_ITS ---
SYMPTOM/DIAGNOSIS: PAIN IN RT BUTTOCK M79.[address]: 08/08 CT examination of the pelvis was performed without contrast administration. The visualized portions of liver, kidneys, and bowel are unremarkable. Urinary bladder may have a thickened wall. Apparent prior hernia surgery noted with multiple surgical coils. There is right S-I joint arthrodesis with two fixation screws in place, no gross interval change in alignment in comparison with images from [facility] from 08/31/2018. No additional bony abnormalities seen apart from mild degenerative changes of both hips. No soft tissue mass or adenopathy seen. CONCLUSION: Apparently stable appearance of right SI joint arthrodesis. 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
== END 2019-08-08 00:51 ==
PROVIDERS: PCP General Practice; Visit Provider Neurological Surgery
DX: M79.18 Myalgia, other site (principal); M16.0 Bilateral primary osteoarthritis of hip; M47.816 Spondylosis without myelopathy or radiculopathy, lumbar region; Z98.1 Arthrodesis status; Z48.815 Encounter for surgical aftercare following surgery on the digestive system; Z87.19 Personal history of other diseases of the digestive system; I10 Essential (primary) hypertension
CPT/HCPCS: 72192

== ENCOUNTER 2019-08-31 10:50 | Outpatient (CLI) | payer MEDICARE, OTHER, SELFPAY ==
--- NOTE | 2019-08-31 09:33 | DI.RAD_ITS ---
EXAM: XR KNEE RT 2V AP,LAT INDICATION: pain. COMPARISON: RIGHT KNEE LIMITED 1 OR 2 VIEW from 07/14/2018 TECHNIQUE: 2D digital imaging was performed. FINDINGS: There is mild narrowing of the medial femoral tibial joint space. Mild periarticular spurring is see n at the posterior patella. The bones are intact and normally mineralized. There is a small joint e ffusion. Atherosclerosis. IMPRESSION: Mild degenerative changes of the right knee.
== END 2019-08-31 11:10 ==
PROVIDERS: PCP General Practice; Referring Provider General Practice; Visit Provider Orthopaedic Surgery
DX: M25.561 Pain in right knee (principal); M25.461 Effusion, right knee; M17.11 Unilateral primary osteoarthritis, right knee; M23.91 Unspecified internal derangement of right knee; Z98.890 Other specified postprocedural states
CPT/HCPCS: 20610; 99213; 73560; J1040

== ENCOUNTER → 2019-10-12 09:14 | Outpatient (BNVA) | payer MEDICARE, OTHER, SELFPAY | PROVIDERS: PCP General Practice; Referring Provider General Practice; Visit Provider Orthopaedic Surgery | DX: M23.91 Unspecified internal derangement of right knee; I10 Essential (primary) hypertension | CPT/HCPCS: 99213 ==

== ENCOUNTER 2020-01-31 10:58 | Outpatient (CLI) | payer MEDICARE, OTHER, SELFPAY ==
--- NOTE | 2020-01-31 10:45 | DI.RAD_ITS ---
EXAM: XR KNEE RT 2V AP,LAT INDICATION: pain. COMPARISON: RIGHT KNEE LIMITED 1 OR 2 VIEW from 07/14/2018 XR KNEE RT 2V AP,LAT from 08/31/2019 TECHNIQUE: 2D digital imaging was performed. FINDINGS: There is moderate narrowing of the medial femoral tibial joint, not significantly changed. No joint effusion is visible. There are mild degenerative changes of patellofemoral joint. Vascular calcific ations are noted. IMPRESSION: Stable degenerative changes greatest of the medial femoral tibial joint. DATA REPOSITORY: RADIATION DOSE DELIVERED:
== END 2020-01-31 11:18 ==
PROVIDERS: PCP Family Medicine; Referring Provider Family Medicine; Visit Provider Orthopaedic Surgery
DX: M25.561 Pain in right knee (principal); M17.11 Unilateral primary osteoarthritis, right knee
CPT/HCPCS: 99213; 73560

== ENCOUNTER 2020-04-02 09:34 | Outpatient (CLI) | payer MEDICARE, OTHER, SELFPAY ==
[2020-04-02 11:57] LABS: Abs Immature Grans 0.01 k/cumm (0.0-0.09); Absolute Basophil Count 0.01 k/cumm (0.0-0.2); Absolute Eosinophil Count 0.39 k/cumm (0.0-0.7); Absolute Lymphocyte Count 0.97 k/cumm (1.2-3.4); Absolute Monocyte Count 0.91 k/cumm (0.11-0.7); Basophils % 0.2; Eosinophils % 7.1; HCT 38.6 % (40.0-50.0); HGB 13.3 g/dL (13.5-17.5); Immature Grans % 0.2 %; Lymphocytes % 17.7; Mean Corp. HGB Concentration 34.5 g/dL (32.0-36.0); Mean Corpuscular Hemoglobin 29.2 pg (27.0-33.0); Mean Corpuscular Volume 84.8 fL (80-95); Mean Platelet Volume 8.5 fL (8.0-11.0); Monocytes % 16.6; Neutrophils % 58.2; Platelet Count 212 x1000/uL (130-400); RBC 4.55 m/cumm (4.50-6.00); White Blood Cell Count 5.49 k/cumm (4.4-10.8)
[2020-04-02 19:10] LABS: COVID-19 RT-PCR UVMMC Result Negative (Negative)
== END 2020-04-02 09:54 ==
PROVIDERS: PCP Family Medicine; Visit Provider Orthopaedic Surgery
DX: M25.561 Pain in right knee (principal); M17.11 Unilateral primary osteoarthritis, right knee; Z11.59 Encounter for screening for other viral diseases; Z01.818 Encounter for other preprocedural examination
CPT/HCPCS: 36415; U0003; 85025

== ENCOUNTER 2020-04-06 05:57 | Inpatient (IN) | payer MEDICARE, OTHER, SELFPAY ==
[2020-04-06] VITALS (13 sets, daily range): BP systolic 108–167; BP diastolic 54–100; PULSE 50–72; RESP 12–19; TEMP 35.6–37.6; O2SAT 92–99
--- NOTE | 2020-04-06 06:59 | W.PREOPHP ---
Assessment and Plan Assessment and plan (1) Osteoarthritis of right knee: Status: Chronic Assessment and plan: Plan: Educated patient on surgery covering surgical technique, recovery process, benefits and risks including but not limited to risk of infection, blood clot, damage to soft tissue/blood vessels/nerves in detail. After discussion patient gives verbal understanding of risks and elects to proceed with scheduling surgery. Patient had opportunity to have questions answered to their satisfaction. They will contact office if issues arise. Patient will continue to be scheduled for right TKA with Dr. Krause. History of Present Illness Narrative: Mr. Montgomery is a 74-year-old male who presents to hospital for right TKA with Dr. Krause. He has been seen in orthopedic clinic numerous times for known right knee DJD. He has tried to treat discomfort by injection which helped for ~2 months. However, his pain has only progressed causing him to have difficulty walking and sleeping. Due to his known DJD and continued pain he was offered surgical intervention and elected to proceed with right TKA. Pertinent Surgical Information Denies past medical history of: stroke, cardiac issues, angina, asthma, COPD, sleep apnea, renal issues, liver issues, hepatitis, current gastrointestinal issues, ulcers, hyperlipidemia, bleeding disorders, seizures, migraines, diabetes, autoimmune disorders, thyroid issues Denies prior complications from surgery or anesthesia. Review of Systems Cardiovascular Cardiovascular: Denies chest pain, Denies rapid heart rate, Denies irregular heart rhythm, Denies dyspnea and Denies slow heart rate Respiratory Respiratory: Reports cough (denies any recent change) and Denies dyspnea PFS Social History (Updated 11/21/19 @ 14:44 by Pearl Tillman) Smoking/Tobacco Use Status: Former Tobacco Use Alcohol Intake: current Alcohol Intake frequency: 0-2 drinks per day Alcohol type: wine Drug use: Never Substance use type: does not use Details: alcohol:t-1, three ounces Adopted: No Caregiver/Support person: No Foster care: No Household members: none Housing: apartment Do you need help understanding health information?: Rarely current occupation: Retired Sexually active: Yes Do you think of yourself as: straight/heterosexual Current gender identity: male Do you feel safe at home: Yes Do you feel safe in your relationship?: Yes Meds Home Medications and Allergies Home Medications Medication Instructions Recorded Confirmed Type lisinopril [Prinivil] 5 mg PO DAILY 07/15/13 04/06/20 History fluoxetine [Prozac] 40 mg PO DAILY tab-cap 05/23/15 04/06/20 History docusate sodium [Stool Softener] 100 mg PO DAILY PRN tab-cap 01/16/16 04/06/20 History Fish Oil 1 ea PO DAILY 03/04/17 04/06/20 History ibuprofen 400 mg tablet 400 mg PO BID PRN tab 08/08/19 04/06/20 History tretinoin 0.025 % topical cream 1 applic TP QHS 01/31/20 04/06/20 History tramadol 50 mg tablet 50 mg PO DAILY PRN #20 tab 02/01/20 04/06/20 Rx fluticasone propionate 50 1 spray NS HS PRN #1 unit 02/13/20 04/06/20 Rx mcg/actuation nasal spray,suspension omeprazole 20 mg capsule,delayed 20 mg PO HS #90 cap 03/15/20 04/06/20 Rx release lorazepam 0.5 mg tablet 0.5 mg PO HS PRN #28 tab 03/30/20 04/06/20 Rx vit C,Y-Vl-iylrz-lutein-zeaxan 1 tab PO BID 04/03/20 04/06/20 History [PreserVision AREDS-2] doxazosin 4 mg tablet 4 mg PO HS #90 tab 04/05/20 04/06/20 Rx Allergies Allergy/AdvReac Type Severity Reaction Status Date / Time No Known Allergies Allergy Verified 01/31/20 10:46 Exam Const General: cooperative and no acute distress Resp Effort & Inspection: normal respiratory effort and able to speak in complete sentences Auscultation: clear to auscultation bilaterally, no rales, no rhonchi and no wheezes Cardio Heart Sounds: S1 normal, S2 normal and no murmurs Results Last Vital Signs Temp 36.5 C 04/06/20 06:34 Pulse 63 04/06/20 06:34 Resp 18 04/06/20 06:34 BP 155/88 H 04/06/20 06:34 Pulse Ox 96 04/06/20 06:34
[2020-04-06] MEDS: Lactated Ringers 1,000 ML 80 ML IV ×2 (07:00→11:27)
[2020-04-06] MEDS: ceFAZolin 2 GM/50 ML BAG IVPB ×3 (07:52→20:01)
[2020-04-06] MEDS: Hydrogen Peroxide 3% 480 ML BTL (10:08)
[2020-04-06] MEDS: Bupivacaine 0.5% Pres-Free 30 ML VIAL (10:09)
--- NOTE | 2020-04-06 11:30 | DI.RAD_ITS ---
EXAM: XR KNEE RT 2V AP,LAT INDICATION: check total knee components in RR. COMPARISON: CR XR KNEE RT 2V AP,LAT from 01/31/2020 TECHNIQUE: 2D digital imaging was performed. Portable examination FINDINGS: The patient is status post placement of a total knee prosthesis. The components appear well aligne d. There is residual postsurgical air in the soft tissues. DATA REPOSITORY: RADIATION DOSE DELIVERED:
[2020-04-06] MEDS: Gabapentin 100 MG CAP PO ×2 (13:09→20:01)
[2020-04-06] MEDS: oxyCODONE-CR 10 MG TABCR PO ×2 (13:09→23:46)
[2020-04-06] MEDS: Docusate Sodium 100 MG CAP PO (13:09)
[2020-04-06] MEDS: Ketorolac 30 MG/ML VIAL IVP ×2 (14:06→20:02)
--- NOTE | 2020-04-06 14:53 | ROE_ITS ---
Date of service: 04/06/20 Time of Service: 14:54 Operative Note Operative Note DATE OF PROCEDURE: 04/06/20 PRE-OP DIAGNOSIS: Osteoarthritis right knee PROCEDURE: Right total knee arthroplasty. SURGEON: Odell Krause ANESTHESIA: spinal PATHOLOGY: none sent COMPLICATIONS: None Patient was transported to: PACU Patient's condition: stable Implants: Size 3 posterior cruciate retaining femoral component, size 4 tibial tray, a size 4/4.5 mm posterior cruciate retaining polyethylene insert and a 32 mm tri-prong patella. Indications: This is a 74-year-old white male with disabling right knee pain. He began having pain just about a year ago. The pain initially was controlled with conservative methods including anti-inflammatory medications and occasional injections. Over the last of 4 to 5 months the pain has significantly increased. Is gotten to the point where he can no longer do his daily walks. Injections and anti-inflammatory medications no longer help. Total knee arthroplasty was recommended to alleviate his pain and hopefully restore some of his previous ambulatory abilities. The risk and complication of the procedure been explained patient detail preoperatively. Findings: Multiple areas of full-thickness articular cartilage loss on both the medial femoral and lateral femoral condyles. Procedure Description: Patient was taken the operating room on 04/06/2020. A femoral nerve block on the right was administered. A long-acting spinal anesthetic was then performed. Once good anesthesia obtained he was turned supine on the operative table. Proximal tourniquet a was applied to the right upper thigh. The patient's right lower extremity was prepped from toes to turn again and draped free in usual sterile fashion. Under proximal tourniquet control of 350 mmHg, an anterior midline incision was made beginning about 4 inches proximal to the patella and extending to the tibial tubercle distally. Incision was carried down through the skin and subcutaneous tissues through the fascia. A medial parapatellar capsular incision was made and extended proximally and longitudinally in line with the quadriceps tendon. Complete medial subperiosteal release was performed. Medial lateral meniscectomies were performed. The anterior cruciate ligament was sacrificed and the posterior cruciate ligament was recessed. Patella was everted knee was hyperflexed. Using intramedullary guide the distal femur was resected. Patient was found to require a size 3 femoral component. Next the proximal tibia was resected using extra medullary alignment guides and jigs. Minimal resection of 4 mm from the medial side was performed. Patient was found to have a best fit with a size 4 tibial component. With the trial tibial component pinned in place the keel for the tibial tray was reamed and punched on proper rotation alignment. Trial reduction at this point showed best stability while still allowing full extension with a 12.5 mm polyethylene insert. Finally the patella was resected using patellar resection guide. 16 mm thickness of patella was left for implantation of a patella component. Using the drill guides for the triplane patella of the holes for the pegs were reamed on proper rotation alignment. The proximal tibia was prepared for cementing using pulse irrigation lavage of saline solution and drying with peroxide soaked strip sponges. One batch of gentamicin impregnated methylmethacrylate was vacuum mixed and was then hand pa cked into the prepared tibia. Distal cement was then placed on the undersurface of the tibial component. The tibial component was then inserted and impacted in the place with the impactor and mallet. The component was further pressurized by using a trial components and extending the knee. Excess cement was trimmed from the margins of the tibial component while cement was still soft using the p lastic cement removal tool. When the first batch of methylmethacrylate had cured the trial components were removed. The distal femur and patella were then prepared for cementing with pulse irrigation lavage with saline solution and drying with peroxide soaked strip sponges. Another batch of gentamicin impregnated methylmethacrylate was vacuum mixed was hand packed onto the prepared distal femur and to the prepared patella. This is cement was placed on the posterior condyles of the femoral component and on the undersurface of the patella component. The femoral component was impacted in place with impactor mallet and pressurized using a trial insert and extending the knee. The patella component was inserted and pressurized using the patella clamp. Excess cement was removed from the margins of the femoral component patella component using a plastic cement removal tool while cement was still soft. When the second batch of methylmethacrylate had cured the trial insert was removed. Posterior recesses were checked and any residual cement was removed with osteotome and mallet. The knee was irrigated final time with pulse irrigation lavage of saline solution. The actual insert size 4 rotating platform posterior cruciate retaining insert was placed in the tibial component reduced onto the femoral condyles. Patient easily came to full extension without hyperextension. The knee was stable to varus and valgus stressing from 0 to 9 degrees of flexion. Patella tracking using the rule of no thumb was normal. The knee was flexible esophagus and closure was begun. The wound margins and the knee capsule were infiltrated 0.25% Marcaine with epinephrine solution. All visible bleeders were cauterized. The quadriceps tendon and the medial capsule were repaired with interrupted [id number] sutures of number 1 Vicryl suture material. Obtains tissue was approximated few interrupted 2-0 Vicryl sutures. A running subcuticular suture of #3 Monocryl was then performed. This is supplemented by tissue glue. Mepilex dressing was applied. A Garcia compressive dressing was applied from toes to groin. The tourniquet was released at this point. A knee immobilizer splint was placed over the compressive dressing to maintain the knee in extension. Patient received 1 g of tranexamic acid prior to tourniquet inflation and a second gram of tranexamic acid when the tourniquet was deflated. Patient tolerated suture well was discharged to recovery room in good condition. Blood loss was minimal due to tourniquet use.
--- NOTE | 2020-04-06 14:57 | IN_ITS ---
Date of service: 04/06/20 Time of Service: 14:57 PT Notes Visit Reasons: POST OP R TOTAL KNEE Physical Therapy Inpatient Initial Evaluation Date: 04/06/2020 Referring Doctor: Odell Krause MD PT Orders: PT CONSULT: S/P Ortho surgery Precautions: Fall. Standard. WBAT o isn R LE with knee immobilizer on. Patient Profile/Admitting Diagnosis: Lavon is a 74-year-old male who is S/P total knee arthroplasty on POD 0 due to osteoarthritis of R knee. PMHX: Sensorineural hearing loss Age-related macular degeneration on the left high Age-related macular degeneration on the right Well lumbar back pain with radiculopathy Chronic midline low back pain with right-sided sciatica M Internal derangement of right knee Duodenal ulcer Lower gastric intestinal hemorrhage Generalized anxiety disorder Benign prostatic hyperplasia Osteoarthritis of right knee Social History/Home Situation: Patient lives in a private home with 14 steps to enter with a rail on the left side going up. He is independent with all activities of daily living without the need for an assistive ambulatory device nor any adaptive. Equipment Owned/DME: Bilateral axillary crutches, front wheel walker, single- point cane Subjective: Reports being numb on both buttocks and continued tingling on bilateral feet legs. Objective: General Observation: Matt wraps over Garcia dressing on right lower extremity. IV in left UE. TEDS on left leg. Ball catheter in place. Mental Status: Alert and oriented x4 Pain: None reported at time of evaluation ROM: Right Upper Extremity: Shoulder Flexion WFL. Shoulder abduction WFL. Elbow flexion WFL. Wrist flexion WFL. Opening and closing of hand WFL. Left Upper Extremity: Shoulder Flexion WFL. Shoulder abduction WFL. Elbow flexion WFL. Wrist flexion WFL. Opening and closing of hand WFL. Right Lower Extremity: Hip flexion allows up to 90 degrees. Hip abduction WFL. Knee flexion NT. Ankle dorsiflexion about 10 degrees. Ankle plantarflexion WFL. Left Lower Extremity: Hip flexion WFL. Hip abduction WFL. Knee flexion WFL. Ankle dorsiflexion WFL. Ankle plantarflexion WFL. Strength: Right Upper Extremity: Shoulder flexors 5/5. Shoulder abductors 5/5. Elbow flexors 5/5. Elbow extensors 5/5. Sheet Metal Mechanic strong. Left Upper Extremity: Shoulder flexors 5/5. Shoulder abductors 5/5. Elbow flexors 5/5. Elbow extensors 5/5. Sheet Metal Mechanic strong. Right Lower Extremity: Hip flexors 3-/5. Hip abductors 3-/5. Knee flexors NT. Knee extensors NT. Ankle dorsiflexors 3-/5. Ankle plantarflexors 4-/5. Left Lower Extremity:Hip flexors 5/5. Hip abductors 5/5. Knee flexors 5/5. Knee extensors 5/5. Ankle dorsiflexors 5/5. Ankle plantarflexors 5/5. Bed Mobility/Transfers: Rolling minimal assist Supine to sit contact-guard assist with HOB at 30 degrees using BUE for support, requires front wheeled walker Sit to supine contact-guard assist with HOB at 30 degrees using BUE for support, requires front wheeled walker Sit to stand contact-guard assist using BUE for support, requires front wheeled walker Stand to sit contact-guard assist using BUE for support, requires front wheeled walker Bed to chair contact-guard assist using BUE for support, requires front wheeled walker Chair to bed contact-guard assist using BUE for support, requires front wheeled walker Gait: Patient tolerated level surface ambulation of 25 feet using front wheeled walker with wheelchair follow laying and contact-guard of PT. Patient was able to back up from the entrance door of his room fci towards his bed and was able to turn without a loss of balance. Patient did report lack of full motor control from the anesthetic effect. Step to gait pattern. Decreased ashley. WBAT on right LE Balance: Static Sitting: Normal Dynamic Sitting: Normal Static Standing: Fair Dynamic Standing: Fair Special Tests: Mobility Limitations Standardized Measure [facility] 6 clicks Basic Mobility Inpatient Short Form: Raw Score: 18 CMS Score: 47% deficit Informed Consent/Education: Patient instructed in purpose of PT consult and plan of care. Assessment: Lavon demonstrates difficulty with walking, need for front wheeled walker for all mobility ADL performance, lack of full control of both lower extremities due to post anesthesia effects, balance impairment, and unsteadiness of feet resulting to a functional mobility decline and increased risk for falls. Lavon is a 74-year-old male who is S/P total knee arthroplasty on POD 0 due to osteoarthritis of R knee. He will benefit from skilled physical therapy services in order to address ongoing functional limitations. Patient presents with clinical signs and symptoms consistent with current/admitting diagnoses that have resulted to mobility limitations, gait instability, generalized weakness, and impairment of motor control as demonstrated by the following impairment level findings: 1. Decreased strength to R LE major muscle groups 2. Impaired sitting/standing balance 3. Impaired activity tolerance 4. Limitation of joint range of motion in right hip Impairments are contributing to the following functional limitations: 1. Dependent bed mobility skills 2. Increased dependence with transfers 3. Inability to safely ambulate without assistive device and physical assistance 4. Increase completion time for mobility ADL performance 5. Increased fall risk 6. Inability to negotiate steps alone safely Patient is assessed as a 73776 moderate complexity based on the following: History: 74-year-old male with impairment level findings, functional limitations, and past medical history as listed above Examination: Demonstrable impairment in strength, balance, and range of motion with underlying impairments and functional limitations as documented above Presentation: Evolving Decision Makin moderate complexity Goals: Goals X1 week 1. Supine-Sit independent 2. Sit-Supine independent 3. Sit-Stand independent 4. Stand-Sit independent 5. Bed-Chair independent 6. Chair-Bed independent 7. Independent gait on level surface with use of least restrictive device for at least 300 feet without report of pain nor dyspnea 8. Independent stair negotiation while holding onto bilateral rails for at least 10 steps without report of pain nor dyspnea 9. Independent with home exercise program 10. Good static and dynamic standing balance/tolerance Plan of Care/Treatment Plan: 1-2x/day, 7 days/week x 1 week. Initiate Physical Therapy intervention for strengthening, bed mobility, transfers, gait, stairs, balance training, use of assistive device. DISCHARGE RECOMMENDATIONS: Patient will benefit from home health PT services in order to progress mobility level using least restrictive assistive ambulatory device, assess home safety, identify additional equipment needs, and establish a functional maintenance program that will increase ability of patient to remain at home. TREATMENT CODE/TIME: 9716 2 x 25 minutes, 24773 x 14 minutes beginning at 14:57 PM. Thank you very much for this referral. Carolina Clark PT, DPT, CLT [facility] [place], [place]
[2020-04-06] MEDS: POTASSIUM CHLORIDE/0.9% NACL 1,000 ML 125 MEQ IV (18:42)
[2020-04-06] MEDS: Acetaminophen 325 MG TAB 650 MG PO (22:23)
[2020-04-06] MEDS: Doxazosin 2 MG TAB 4 MG PO (22:23)
[2020-04-06] MEDS: LORazepam 0.5 MG TAB PO (22:23)
[2020-04-06] MEDS: HYDROcodone 5/Acetaminophen 325 TAB PO (23:49)
[2020-04-07] MEDS: Normal Saline Flush 10 ML SYR IV ×8 (00:39→23:31)
[2020-04-07] MEDS: MORPHine 10 MG/ML VIAL IVP ×8 (00:39→23:31)
[2020-04-07] MEDS: Ketorolac 30 MG/ML VIAL IVP ×4 (01:46→20:05)
[2020-04-07] MEDS: ceFAZolin 2 GM/50 ML BAG IVPB ×4 (01:47→20:07)
[2020-04-07 03:56] VITALS: BP 93/56; PULSE 62; RESP 18; TEMP 36.1; O2SAT 93
[2020-04-07] MEDS: POTASSIUM CHLORIDE/0.9% NACL 1,000 ML 60 MEQ IV (05:01)
[2020-04-07] MEDS: HYDROcodone 5/Acetaminophen 325 TAB PO ×3 (06:32→22:02)
[2020-04-07 06:49] LABS: HCT 31.5 % (40.0-50.0); HGB 10.9 g/dL (13.5-17.5); Mean Corp. HGB Concentration 34.6 g/dL (32.0-36.0); Mean Corpuscular Hemoglobin 29.4 pg (27.0-33.0); Mean Corpuscular Volume 84.9 fL (80-95); Mean Platelet Volume 8.8 fL (8.0-11.0); Platelet Count 183 x1000/uL (130-400); RBC 3.71 m/cumm (4.50-6.00); RBC Distribution Width 13.9 % (11.8-14.1); White Blood Cell Count 8.73 k/cumm (4.4-10.8)
[2020-04-07] MEDS: Omega-3 Fatty Acids 1000 MG CAP PO (07:42)
[2020-04-07] MEDS: Gabapentin 100 MG CAP PO ×3 (07:42→20:05)
[2020-04-07] MEDS: Docusate Sodium 100 MG CAP PO (07:42)
[2020-04-07] MEDS: FLUoxetine 20 MG CAP 40 MG PO (07:44)
[2020-04-07] MEDS: Pantoprazole 40 MG TABCR PO (07:44)
[2020-04-07 07:55] VITALS: BP 110/68; PULSE 60; RESP 18; TEMP 36.6; O2SAT 97
[2020-04-07] MEDS: Lisinopril 10 MG TAB 5 MG PO (07:58)
--- NOTE | 2020-04-07 08:51 | INITIAL_ITS ---
- If Service Date Differs Date of service: 04/07/20 Time of Service: 08:51 Care Management Initial Assess REASON FOR HOSPITALIZATION:: R Total Knee PAST MEDICAL HISTORY/PAST SURGICAL HISTORY:: Past Medical History: Sensorineural hearing loss. Age-related macular degeneration on the left high. Age-related macular degeneration on the right. Well lumbar back pain with radiculopathy. Chronic midline low back pain with right-sided sciatica M. Internal derangement of right knee. Duodenal ulcer. Lower gastric intestinal hemorrhage. Generalized anxiety disorder. Benign prostatic hyperplasia. Osteoarthritis of right knee PREVIOUS FUNCTIONAL STATUS/SOCIAL/FAMILY SUPPORTS:: Lavon lives alone in [facility]. He has worked in farming, construction, security and car sales. He is independent at baseline and keeps himself very busy, even in jail. His daughter and ex are listed as supports. CURRENT FUNCTIONAL STATUS:: Lavon was sitting up in his chair when CM met with him. He stated that he was feeling ok, and was just given pain meds so his pain was well controlled. He stated that he has had many surgeries, and felt comfortable staying overnight to manage his pain and to work more with PT prior to discharge. CM will continue to follow. ADVANCE DIRECTIVES:: On file. Britt Montgomery listed as agent. (ex ) Susi Ulises listed as alternate agent. (daughter) Has patient been provided with information about the portal?: No Did the patient sign up for the portal?: No CODE STATUS:: Full Code INSURANCE COVERAGE / FINANCIAL ISSUES:: [facility]/ [employer] Supplement Plan C CURRENT HOME/COMMUNITY SERVICES/EQUIPMENT:: Lavon owns crutches, a cane and a FWW. PRIMARY CARE PHYSICIAN:: Corby Lane POTENTIAL DISCHARGE NEEDS:: Evaluations for further needs, follow up appointments PATIENT/FAMILY EDUCATION NEEDS:: Review discharge instructions regarding activity levels and medications, discussion of self care needs including ask me three ANTICIPATED BARRIERS TO DISCHARGE:: None identified at this time. TRANSPORTATION:: Via private vehicle by family PLAN:: Anticipate Lavon will return home when medically cleared with no additonal services. He will be driven home by family via private vehicle. He will follow up with Ortho, as recommended. CM will continue to follow.
--- NOTE | 2020-04-07 09:49 | PHACLINREV_ITS ---
Pharmacy Admission Review - Admission Clinical Review No Known Allergies Allergy (Verified 01/31/20 10:46) Height 5 ft 6 in Weight 70.6 kg - Renal Dosing Medications needing adjustments: N/A (No Scr lab in [facility] in last 30 days) - Anticoagulation Anticoagulation: Hgb 10.9 g/dL (13.5-17.5) L 04/07/20 06:25 Hct 31.5 % (40.0-50.0) L 04/07/20 06:25 Plt Count 183 x1000/uL (130-400) 04/07/20 06:25 DVT Prohphylaxis: Reviewed Medications: Enoxaparin - Opiate Usage Scheduled Bowel Reg ordered if on Opiates?: Yes - DM Control Insulin Dosing: N/A - Heart Failure/RI EF%, PAMELA's, B-Blockers, Diuretics: N/A - BP Control BP Control: Blood Pressure 110/68 Blood Pressure 93/56 Blood Pressure 160/74 If elevated: N/A - Qtc Review If Elevated: N/A - IV to PO Switch IV Medications: Reviewed (IV pain meds, IVF) - Home Meds Home Med List reviewed: Reviewed - Current meds Current Medication Order Review: Reviewed
[2020-04-07] MEDS: Enoxaparin 40 MG/0.4 ML SYR SC (09:57)
[2020-04-07] MEDS: oxyCODONE-CR 10 MG TABCR PO ×2 (12:19→23:27)
--- NOTE | 2020-04-07 12:55 | W.PM.PROGNOT ---
Date of Service Date of service: 04/07/20 Time of Service: 12:55 Assessment and Plan Assessment and plan (1) Status post total knee replacement, right: Status: Acute Assessment and plan: Assessment: Stable postop day #1 right total knee replacement. Although his nerve block appears to have worn off, I think is postop pain is now being controlled adequately. I think his catheter can come out. I think his IV fluids can be discontinued. Plan: Continue to progress with PT per protocol. Will DC the Garcia dressing tomorrow and apply long-leg Ryan stocking to the right. After the Garcia dressing is removed, will apply a Cryo/Cuff to the right knee 4 times a day for an hour each time. Will DC Ball. DC IV fluids. We will leave the IV in overnight for axis. DC home when fully independent and taking only p.o. pain meds. Subjective Subjective Interval history since last seen: He said he had a rough night last night in terms of pain. He said he was asking for morphine every hour. Pain is under good control today so far. He is tired because he did not get some sleep. He has been up ambulating with physical therapy and he said that went well. He like to get his catheter out. Exam Narrative Exam Narrative: He is afebrile vital signs are stable. He sitting comfortably in the chair. He actually has his right knee flexed approximately 50 degrees comfortably. He has good active ankle and foot dorsiflexion. Good sensation capillary refill to the right toes. Hemoglobin is 10.9 g this morning. He has been up walking with physical therapy in the hallway today. Intake and output are good. Objective Objective Clinical Data: Abnormal lab results 04/07/20 Range/Units 06:25 RBC 3.71 L (4.50-6.00) m/cumm Hgb 10.9 L (13.5-17.5) g/dL Hct 31.5 L (40.0-50.0) % Vital Signs Temperature 36.6 C 04/07/20 07:55 Temperature Source Tympanic 04/07/20 07:55 Pulse 60 04/07/20 07:55 Pulse Rhythm Regular 04/07/20 07:45 Respiratory Rate 18 04/07/20 07:55 Respiratory Effort Non-Labored 04/07/20 07:45 Respiratory Depth Normal 04/07/20 07:45 Respiratory Pattern Normal 04/07/20 07:45 Blood Pressure 110/68 04/07/20 07:55 Pulse Oximetry 97 04/07/20 07:55 Oxygen Delivery Method Room Air 04/07/20 07:55 Oxygen Flow Rate 0 04/07/20 07:55 Pain Level 6 04/07/20 12:19 Intake & Output 04/06/20 04/07/20 04/07/20 23:59 11:59 23:59 Intake Total 1484.583 / 2552.583 2420.167 / 2670.167 250 / 2670.167 Output Total 1675 / 1925 75 / 75 Balance -190.417 / 676.125 4629.167 / 2595.167 250 / 2595.167 Intake: IV 844.583 / 1912.583 830.167 / 830.167 Oral 640 / 640 1590 / 1840 250 / 1840 Output: Urine 1674 / 1924 75 / 75 Other: Urine Color Yellow Yellow Urine Appearance Clear Clear Comment NOT EMPTIED IN PACU. Stool Size Moderate Stool Characteristics Formed Emesis Description None Laboratory Results WBC 8.73 k/cumm (4.4-10.8) 04/07/20 06:25 RBC 3.71 m/cumm (4.50-6.00) L 04/07/20 06:25 Hgb 10.9 g/dL (13.5-17.5) L 04/07/20 06:25 Hct 31.5 % (40.0-50.0) L 04/07/20 06:25 MCV 84.9 fL (80-95) 04/07/20 06:25 MCH 29.4 pg (27.0-33.0) 04/07/20 06:25 MCHC 34.6 g/dL (32.0-36.0) 04/07/20 06:25 RDW 13.9 % (11.8-14.1) 04/07/20 06:25 Plt Count 183 x1000/uL (130-400) 04/07/20 06:25 MPV 8.8 fL (8.0-11.0) 04/07/20 06:25
--- NOTE | 2020-04-07 14:14 | PTTR_ITS ---
Date of service: 04/07/20 Time of Service: 14:14 PT Notes Visit Reasons: POST OP R TOTAL KNEE Inpatient Physical Therapy Treatment Note [facility] Date: 04/07/2020 PRECAUTIONS: Fall. Standard. WBAT on R LE. SUBJECTIVE: Patient reports that he had a rough night last night due to inadequate pain control. He reports of tolerable pain on the right knee at rest during this session. He states that he needs to visualize the activity before he can effectively act on it. He reports increased pain with weight bearing but states that today is a lot better than yesterday overall. He is happy that his Ball catheter has been removed. OBJECTIVE: IV in the left UE. TEDS on left leg. Matt wraps over Garcia dressing on right LE. PAIN: 5/10 at rest. 7/10 at the end of ambulation and stair negotiation. BED MOBILITY/TRANSFERS Rolling L/R: Minimal assist to right LE in the morning, SBA in the afternoon using both UEs for support Supine-sit: Minimal assist to right LE in the morning, SBA in the afternoon using both UEs for support Sit-supine: Minimal assist to right LE in the morning, CGA in the afternoon using both UEs for support Sit-stand: Minimal assist to right LE in the morning, CGA in the afternoon using both UEs for support, requires use of front wheeled walker Stand-sit: Minimal assist to right LE in the morning, CGA in the afternoon using both UEs for support, requires use of front wheeled walker, min minimal verbal cues for controlled descent Bed-Chair:Minimal assist to right LE in the morning, CGA in the afternoon using both UEs for support, requires use of front wheeled walker, min minimal verbal cues for controlled descent Chair-bed: Minimal assist to right LE in the morning, CGA in the afternoon using both UEs for support, requires use of front wheeled walker, min minimal verbal cues for controlled descent GAIT Assistive Device: Front wheeled walker Weight bearing: WBAT on right LE Assist: Contact-guard assist and IV pole management of PT with wheelchair follow of AUTOMOBILE SERVICE STATION MANAGER Distance: 80 feet +10 feet in the morning, 100 feet +15 feet in the afternoon. Deviation: Step to gait pattern. Gianna beginning to increase. 7/10 pain at the end of ambulation activity. STAIRS: Patient tolerated six 4 inch steps and four 6 inch steps in the morning and in the afternoon while holding onto a bilateral rails with step over step pattern with minimal assist to right knee as it tends to buckle with each weight bearing; moderate verbal cues needed for safe technique. ASSESSMENT: Patient demonstrates demonstrating increasing tolerance for ambulation distance as well as increasing independence with bed mobility and transfer task performance. He remains unsafe to negotiate steps as quadriceps activation on the right side becomes limited as patient gets tired and as pain control gets decreased. PLAN: We will continue to coordinate with charge nurse for premedication for pain to maximize functional performance. We will continue to benefit benefit from skilled services in order to progress stair negotiation and level surface ambulation skills in anticipation of return to home. Patient will benefit from home health PT services in order to progress mobility level using least restrictive assistive ambulatory device, assess home safety, identify additional equipment needs, and establish a functional maintenance program that will increase ability of patient to remain at home. TREATMENT CODE/TIME: Session 1??80665 x 47 minutes beginning at 11:05 AM. 63726 x 47 minutes beginning at 14:14 PM.
[2020-04-07 15:35] VITALS: BP 103/51; PULSE 60; RESP 19; TEMP 36.3; O2SAT 97
[2020-04-07 19:13] VITALS: BP 112/57; PULSE 71; RESP 19; TEMP 36.8; O2SAT 93
[2020-04-07] MEDS: LORazepam 0.5 MG TAB PO (22:04)
[2020-04-07] MEDS: Doxazosin 2 MG TAB 4 MG PO (22:05)
[2020-04-07 23:41] VITALS: BP 123/77; PULSE 64; RESP 18; TEMP 37.1; O2SAT 93
[2020-04-08] VITALS (7 sets, daily range): BP systolic 107–151; BP diastolic 63–82; PULSE 63–72; RESP 16–20; TEMP 36.7–37.3; O2SAT 91–94
[2020-04-08] MEDS: ceFAZolin 2 GM/50 ML BAG IVPB ×2 (02:30→08:12)
[2020-04-08] MEDS: Normal Saline Flush 10 ML SYR IV ×3 (02:31→19:52)
[2020-04-08] MEDS: Ketorolac 30 MG/ML VIAL IVP ×4 (02:31→19:52)
[2020-04-08 06:49] LABS: HCT 26.3 % (40.0-50.0); HGB 8.9 g/dL (13.5-17.5); Mean Corp. HGB Concentration 33.8 g/dL (32.0-36.0); Mean Corpuscular Volume 85.7 fL (80-95); Mean Platelet Volume 8.8 fL (8.0-11.0); Platelet Count 154 x1000/uL (130-400); RBC 3.07 m/cumm (4.50-6.00); RBC Distribution Width 13.8 % (11.8-14.1)
[2020-04-08] MEDS: Gabapentin 100 MG CAP PO ×3 (08:08→19:51)
[2020-04-08] MEDS: Pantoprazole 40 MG TABCR PO (08:08)
[2020-04-08] MEDS: Omega-3 Fatty Acids 1000 MG CAP PO (08:08)
[2020-04-08] MEDS: Lisinopril 10 MG TAB 5 MG PO (08:10)
[2020-04-08] MEDS: FLUoxetine 20 MG CAP 40 MG PO (08:12)
[2020-04-08] MEDS: Docusate Sodium 100 MG CAP PO ×3 (08:12→19:51)
--- NOTE | 2020-04-08 10:36 | PGE_ITS ---
Date of Service Date of service: 04/08/20 Time of Service: 10:36 Assessment and Plan Assessment and plan (1) Status post total knee replacement, right: Status: Acute Assessment and plan: Assessment: Progressing steadily at postop day #2 right total knee replacement. I think all he needs to do is have his pain decreased so that he does not take IV morphine in order to go home. I think his mobility will be good enough by tomorrow. Plan: Continue mobilize with PT. Continue with multimodal pain medicine. He will try to get by without taking any morphine. Would expect he will be ready for discharge tomorrow or Thursday. Subjective Subjective Patient reports: feels better and pain is less Interval history since last seen: Had a much better night sleeping. He is requiring much less IV morphine. He has been able to void since his Ball was r emoved yesterday. Exam Narrative Exam Narrative: Hemoglobin 8.8 g today. He is afebrile and vital signs are stable. Reported pain level is maximum 5 on a 10 scale. I remove his Garcia dressing today. There is some mild swelling about his knee no erythema. Neurovascular examination right foot is intact. Mepilex dressing is in place and dry. He cannot quite do an active straight leg raise yet. Objective Objective Clinical Data: Abnormal lab results 04/08/20 Range/Units 06:22 RBC 3.07 L (4.50-6.00) m/cumm Hgb 8.9 L (13.5-17.5) g/dL Hct 26.3 L (40.0-50.0) % Vital Signs Temperature 36.8 C 04/08/20 07:05 Temperature Source Tympanic 04/08/20 07:05 Pulse 66 04/08/20 07:05 Pulse Rhythm Regular 04/08/20 05:09 Respiratory Rate 19 04/08/20 07:05 Respiratory Effort Non-Labored 04/08/20 05:09 Respiratory Depth Normal 04/08/20 05:09 Respiratory Pattern Normal 04/08/20 05:09 Blood Pressure 107/63 04/08/20 07:05 Pulse Oximetry 93 L 04/08/20 09:08 Oxygen Delivery Method Room Air 04/08/20 09:08 Oxygen Flow Rate 0 04/08/20 09:08 Pain Level 5 04/08/20 07:05 Intake & Output 04/07/20 04/07/20 04/08/20 11:59 23:59 11:59 Intake Total 2470.167 / 3649.167 1179 / 3649.167 50 / 50 Output Total 75 / 225 150 / 225 Balance 2395.167 / 3424.167 1029 / 3424.167 50 / 50 Intake: IV 880.167 / 1559.167 679 / 1559.167 50 / 50 Oral 1590 / 2090 500 / 2090 Output: Urine 75 / 225 150 / 225 Other: Urine Color Yellow Yellow Yellow Urine Appearance Clear Clear Clear Urine Odor None Voiding Methods Toilet Toilet Laboratory Results WBC 7.80 k/cumm (4.4-10.8) 04/08/20 06:22 RBC 3.07 m/cumm (4.50-6.00) L 04/08/20 06:22 Hgb 8.9 g/dL (13.5-17.5) L 04/08/20 06:22 Hct 26.3 % (40.0-50.0) L 04/08/20 06:22 MCV 85.7 fL (80-95) 04/08/20 06:22 MCH 29.0 pg (27.0-33.0) 04/08/20 06:22 MCHC 33.8 g/dL (32.0-36.0) 04/08/20 06:22 RDW 13.8 % (11.8-14.1) 04/08/20 06:22 Plt Count 154 x1000/uL (130-400) 04/08/20 06:22 MPV 8.8 fL (8.0-11.0) 04/08/20 06:22
[2020-04-08] MEDS: Enoxaparin 40 MG/0.4 ML SYR SC (10:53)
--- NOTE | 2020-04-08 11:34 | PTTR_ITS ---
Date of service: 04/08/20 Time of Service: 11:34 PT Notes Visit Reasons: POST OP R TOTAL KNEE Inpatient Physical Therapy Treatment Note [facility] Date: 04/08/2020 PRECAUTIONS: Fall. Standard. WBAT on R LE. SUBJECTIVE: Drew reports that orthopedic surgeon came and removed Garcia dressing this morning. He states that his leg felt a lot felt hat pouncing operator hand after dressing removal. He continues to report pain on R LE that is aggravated by weight bearing. He denies any shortness of breath, chest, and dizziness throughout session today. Patient refused the afternoon session stating that his pain level has not improved, he requested to rest in the afternoon and arranged to be seen tomorrow morning as scheduled. OBJECTIVE: IV in the left UE. TEDS on left leg. PAMELA wraps over Mepilex Ag dressing on right LE. PAIN: 7/10 at rest. 8-9/10 at the end of ambulation and stair negotiation. BED MOBILITY/TRANSFERS Supine-sit: Supervision using both UEs for support Sit-supine: Supervision using both UEs for support Sit-stand: Supervision using both UEs for support Stand-sit: Supervision using both UEs for support, min minimal verbal cues for controlled descent Bed-Chair:Supervision using both UEs for support, min minimal verbal cues for controlled descent Chair-bed: Supervision using both UEs for support, min minimal verbal cues for controlled descent GAIT Assistive Device: Front wheeled walker Weight bearing: WBAT on right LE Assist: Contact-guard assist Distance: 200 feet +30 feet Deviation: Step-to gait pattern. Gianna continuing to increase. 8-9/10 pain at the end of ambulation activity. Patient tends to forward flex increasingly to minimize weight bearing on right LE towards the end of activity. STAIRS: Patient tolerated six 4-inch steps and four 6-inch steps while holding onto a bilateral rails with step-to gait pattern with standby assist moderate verbal cues needed for safe technique. Quads activation much more improved today with patient not needing knee locking by PT during activity. ASSESSMENT: Patient demonstrates increasing tolerance for ambulation distance as well as increasing independence with bed mobility and transfer task performance. His activity tolerance for stair negotiation remains decreased and will continue to require skilled services in preparation of managing 20 steps at home. Patient was insistent about having nurse come in for pain management as he was considerably hurting right after PT session. He refused participating in any kind activity in the afternoon stating that his pain level has stayed the same. PLAN: We will continue to coordinate with charge nurse for pre-medication for pain to maximize functional performance. We will continue to benefit benefit from skilled services in order to progress stair negotiation and level surface ambulation skills in anticipation of return to home. Patient will benefit from home health PT services in order to progress mobility level using least restrictive assistive ambulatory device, assess home safety, identify additional equipment needs, and establish a functional maintenance program that will increase ability of patient to remain at home. TREATMENT CODE/TIME: Session 1??13237 x 31 minutes beginning at 11:34 AM. Session 2??refused.
[2020-04-08] MEDS: oxyCODONE-CR 10 MG TABCR PO (12:16)
[2020-04-08] MEDS: Acetaminophen 325 MG TAB 650 MG PO (12:42)
[2020-04-08] MEDS: MORPHine 10 MG/ML VIAL IVP (12:50)
--- NOTE | 2020-04-08 15:08 | PDOC.CMPRO ---
- If Service Date Differs Date of service: 04/08/20 Time of Service: 15:08 Care Management Progress Note S/O: Per report, Lavon is still requiring morphine for pain post operatively. He continues to work with PT, showing improvement. Per MD, he will be ready for discharge once his pain is well controlled. His alves catheter was removed today. He may be ready for discharge Thursday. CM will continue to follow. A: Lavon is a 74 year old male admitted to [facility] on 04/06/20 for a total knee replacement. P: Anticipate Lavon will return home when medically cleared with no additional services. He will be driven home via private vehicle by family. He will follow up with Ortho, as recommended. CM will continue to follow.
[2020-04-08] MEDS: HYDROcodone 5/Acetaminophen 325 TAB PO (22:50)
[2020-04-08] MEDS: Doxazosin 2 MG TAB 4 MG PO (22:51)
[2020-04-09] MEDS: oxyCODONE-CR 10 MG TABCR PO ×3 (00:15→23:14)
[2020-04-09] MEDS: Ketorolac 30 MG/ML VIAL IVP ×2 (02:00→08:24)
[2020-04-09] MEDS: Normal Saline Flush 10 ML SYR IV ×4 (02:00→22:23)
[2020-04-09 03:25] VITALS: RESP 19
[2020-04-09 07:08] VITALS: BP 129/67; PULSE 71; RESP 17; TEMP 36.4; O2SAT 94
[2020-04-09] MEDS: Pantoprazole 40 MG TABCR PO (08:24)
[2020-04-09] MEDS: FLUoxetine 20 MG CAP 40 MG PO (08:24)
[2020-04-09] MEDS: Omega-3 Fatty Acids 1000 MG CAP PO (08:24)
[2020-04-09] MEDS: Docusate Sodium 100 MG CAP PO ×3 (08:24→20:29)
[2020-04-09] MEDS: Gabapentin 100 MG CAP PO ×3 (08:24→20:29)
[2020-04-09] MEDS: Lisinopril 10 MG TAB 5 MG PO (08:25)
--- NOTE | 2020-04-09 09:19 | W.NUTRFU ---
Date of service: 04/09/20 Time of Service: 09:19 Nutritional Follow up NOTE: 74 yo male s/p right total knee replacement. Following regular diet with adequate intake (>75%). BMI wnl for age. Not at risk for nutritional decline. Will be available prn. Time Spent in Nutritional Counseling and Treatment: 0
[2020-04-09] MEDS: Enoxaparin 40 MG/0.4 ML SYR SC (09:36)
[2020-04-09] MEDS: HYDROcodone 5/Acetaminophen 325 TAB PO ×2 (09:36→15:41)
[2020-04-09] MEDS: Acetaminophen 325 MG TAB 650 MG PO ×3 (10:56→20:31)
[2020-04-09 11:43] VITALS: BP 145/75; PULSE 62; RESP 16; TEMP 36.3; O2SAT 95
--- NOTE | 2020-04-09 14:14 | PT.INTREAT ---
Date of service: 04/09/20 Time of Service: 14:14 PT Notes Visit Reasons: POST OP R TOTAL KNEE Inpatient Physical Therapy Treatment Note [facility] Date: 04/09/2020 PRECAUTIONS: Fall. Standard. WBAT on R LE. SUBJECTIVE: Drew continues to feel much improved pain control on the left knee allowing him to move better and quicker. He is happy about how much nurse Brittany is trying her best to stay on top of his pain so he can do well with therapy. OBJECTIVE: IV in the left UE. TEDS on B legs. PAMELA wraps over Mepilex Ag on right LE. Anti-thromboembolic pumps on both legs. PAIN: 5/10 at rest. 4-5/10 at the end of ambulation and stair negotiation. BED MOBILITY/TRANSFERS Supine-sit: Supervision using both UEs for support Sit-supine: Supervision using both UEs for support Sit-stand: Supervision using both UEs for support, requires FWW Stand-sit: Supervision using both UEs for support, requires FWW Bed-Chair: Supervision using both UEs for support, requires FWW Chair-bed: Supervision using both UEs for support, requires FWW GAIT Assistive Device: Front wheeled walker Weight bearing: WBAT on right LE Assist: Standby assist in the morning, supervision in the afternoon. Distance: 120 feet +120 feet in the morning, 120 feet +100 feet in the afternoon Deviation: Step-to gait pattern but with left step length improving as pain level on the right LE is decreasing. Gianna continuing to increase. 45/10 pain at the end of ambulation activity. Trunk more erect with less favoring of right LE due to better pain control. THERA EX: Patient tolerated seated level exercises consisting of ankle plantarflexion x15 reps, ankle dorsiflexion x15 reps, seated hip flexion x15 on the left and 2 sets of 5 reps on the right side, and long arc quads x15 reps on the left and 2 sets of 5 on the right side. STAIRS: Patient tolerated twelve 4-inch steps and eight 6-inch steps while holding onto bilateral rails with step-to gait pattern with standby assist in the morning session and supervision only in the afternoon. Quads activation continuing to improve improved adding to overall stability. ASSESSMENT: Stair negotiation appeared much improved today. Level surface ambulation looked significantly more stable using the front wheeled walker. Pain control level has been the best so far. Active range of motion for right knee flexion about 75 degrees. Active knee extension on the right -45 degrees. PLAN: Patient will benefit from home health PT services in order to progress to independent negotiation of 20 steps at home, assess home safety, identify additional equipment needs, and establish a functional maintenance program that will increase ability of patient to remain at home. TREATMENT CODE/TIME: Session 1??30859 x 30 minutes, 9711 0 x 18 minutes beginning at 8:35 AM. Session 2??[id number] x 41 minutes beginning at 14:14 PM.
[2020-04-09 15:00] VITALS: BP 159/81; PULSE 67; RESP 19; TEMP 36.6; O2SAT 96
--- NOTE | 2020-04-09 15:31 | W.PM.PROGNOT ---
Date of Service Date of service: 04/09/20 Time of Service: 15:31 Assessment and Plan Assessment and plan (1) Status post total knee replacement, right: Status: Acute Assessment and plan: Assessment: I think is finally turning the corner in terms of pain for his total knee replacement. Barring any setbacks, he should be ready to go home tomorrow. He will not need to use the knee immobilizer once he can do an active straight leg raise easily. Plan: Continue to push with PT. DC home tomorrow. Subjective Subjective Interval history since last seen: Lavon reports feeling much better today. He states the first day that his pain has stayed minimal all day. He slept really well last night. He is planning on going home tomorrow, barring any problems. Exam Narrative Exam Narrative: He remains afebrile vital signs are stable. Neurovascular examination right foot is normal. He can just about to perform an active straight leg raise on the right. Knee incision benign. He is pretty much independent with mobility. Objective Objective Clinical Data: Vital Signs Temperature 36.3 C L 04/09/20 11:43 Temperature Source Tympanic 04/09/20 11:43 Pulse 62 04/09/20 11:43 Pulse Rhythm Regular 04/09/20 10:52 Respiratory Rate 16 04/09/20 11:43 Respiratory Effort 04/09/20 10:52 Respiratory Depth Normal 04/09/20 10:52 Respiratory Pattern Normal 04/09/20 10:52 Blood Pressure 145/75 H 04/09/20 11:43 Pulse Oximetry 95 04/09/20 11:43 Oxygen Delivery Method Room Air 04/09/20 11:43 Oxygen Flow Rate 0 04/09/20 11:43 Pain Level 6 04/09/20 14:53 Comment 04/09/20 03:25 Intake & Output 04/08/20 04/09/20 04/09/20 23:59 11:59 23:59 Intake Total 260 / 310 480 / 480 Balance 260 / 310 480 / 480 Intake: IV Oral 240 / 240 480 / 480 Other: Urine Color Yellow Urine Appearance Clear Clear Urine Odor Normal Voiding Methods Toilet Laboratory Results WBC 7.80 k/cumm (4.4-10.8) 04/08/20 06:22 RBC 3.07 m/cumm (4.50-6.00) L 04/08/20 06:22 Hgb 8.9 g/dL (13.5-17.5) L 04/08/20 06:22 Hct 26.3 % (40.0-50.0) L 04/08/20 06:22 MCV 85.7 fL (80-95) 04/08/20 06:22 MCH 29.0 pg (27.0-33.0) 04/08/20 06:22 MCHC 33.8 g/dL (32.0-36.0) 04/08/20 06:22 RDW 13.8 % (11.8-14.1) 04/08/20 06:22 Plt Count 154 x1000/uL (130-400) 04/08/20 06:22 MPV 8.8 fL (8.0-11.0) 04/08/20 06:22
--- NOTE | 2020-04-09 15:46 | CHAPLAIN ---
Lavon was resting in bed when I visited. He told me about what led to his knee surgery and shared some personal history. He's hoping to go home today but said it may be tomorrow. Lavon has been here for other procedures, and seems to be comfortable being here.
--- NOTE | 2020-04-09 16:44 | CMPROGNOTE_ITS ---
- If Service Date Differs Date of service: 04/09/20 Time of Service: 16:44 Care Management Progress Note S/O: Lavon was sitting up in bed when CM met with him. He reported that his pain is much better today, with the exception of when he is moving around with PT. Per PT, he is doing much better today with walking and stairs. Per MD, he may be ready for discharge tomorrow, barring any unforeseen complications. CM will continue to follow. A: Lavon is a 74 year old male admitted to [facility] on 04/06/20 for a total knee replacement. P: Anticipate Lavon will return home when medically cleared with no additional services. He will be driven home via private vehicle by his daughter. He will follow up with Ortho, as recommended. CM will continue to follow.
[2020-04-09] MEDS: Ketorolac 15 MG/ML VIAL IVP ×2 (16:53→22:23)
--- NOTE | 2020-04-09 18:25 | NUR.NOTE ---
Nursing Note: Pt with moderate pain all day. No IV pain meds used, but all modalities of pain control used. Although moderate pain noted, pt reports having a better day today than today. Scheduled meds, PRN meds, ice therapy, B/L TEDS, B/L SCD's, and cryocuff added to regime. Pt ambulating with good effort, using walker. Worked with therapy twice today, and ambulates in room to bathroom each time he has to use the toilet. Leg also elevated on pillow periodically.
[2020-04-09 21:30] VITALS: O2SAT 96
[2020-04-09] MEDS: Doxazosin 2 MG TAB 4 MG PO (22:22)
[2020-04-09 22:25] VITALS: BP 173/73; PULSE 60; RESP 18; TEMP 36.3; O2SAT 96
[2020-04-10] MEDS: MORPHine 10 MG/ML VIAL IVP (00:37)
[2020-04-10] MEDS: Normal Saline Flush 10 ML SYR IV ×4 (00:37→16:16)
[2020-04-10] MEDS: Ketorolac 15 MG/ML VIAL IVP ×3 (03:38→16:16)
[2020-04-10 03:46] VITALS: BP 163/76; PULSE 62; RESP 19; TEMP 37.1; O2SAT 96
[2020-04-10 06:20] VITALS: BP 159/72
[2020-04-10] MEDS: HYDROcodone 5/Acetaminophen 325 TAB PO (06:46)
[2020-04-10 07:15] VITALS: BP 163/78; PULSE 64; RESP 18; TEMP 36.7; O2SAT 96
[2020-04-10] MEDS: Gabapentin 100 MG CAP PO ×2 (07:45→14:11)
[2020-04-10] MEDS: Omega-3 Fatty Acids 1000 MG CAP PO (07:45)
[2020-04-10] MEDS: FLUoxetine 20 MG CAP 40 MG PO (07:45)
[2020-04-10] MEDS: Pantoprazole 40 MG TABCR PO (07:45)
[2020-04-10] MEDS: Docusate Sodium 100 MG CAP PO ×2 (07:45→14:11)
[2020-04-10] MEDS: Lisinopril 10 MG TAB 5 MG PO (07:45)
[2020-04-10] MEDS: Enoxaparin 40 MG/0.4 ML SYR SC (09:40)
[2020-04-10 11:40] VITALS: BP 155/72; PULSE 66; RESP 19; TEMP 36.6; O2SAT 98
--- NOTE | 2020-04-10 11:51 | W.PM.DS.N ---
Date of service: 04/10/20 Time of Service: 11:51 DS: Diagnosis Discharge Diagnosis (1) Status post total knee replacement, right: Status: Acute Discharge Plan Disposition Patient Disposition: HOME Condition: Good Discharge Details Reason For Visit: POST OP R TOTAL KNEE Admit Date/Time: 04/06/20 05:57 Admit Provider: Odell Krause Attending Provider: Odell Krause [facility] Hospital Course: Patient was taken the operating him on the day of admission, 04/06/2020, where he underwent a right total knee replacement without complications. Postoperatively he was mobilized per protocol with physical therapy. Postop pain was treated with multimodal pain regimen. He progressed rapidly with mobilization. Postop pain took a little longer to come under control. By 04/10/2020 he has achieved full independence with transfers and ambulation. Pain was adequately controlled with p.o. pain meds. He was afebrile throughout his postoperative course. Postop hemoglobin stabilized at 8.9 g on postop day #2. His incision was clean and dry. No erythema around the incision. DVT prophylaxis was achieved with Lovenox during his hospitalization. By 04/10/2020 was felt that he completed acute care goals and was ready for discharge. Home Meds and New Rx's Prescriptions: New celecoxib [Celebrex] 200 mg capsule 200 mg PO BID Qty: 20 RF: 1 hydrocodone-acetaminophen 5-325 mg tablet 1 tab PO Q6H PRN (Reason: pain) Qty: 30 RF: 0 Continued omeprazole 20 mg capsule,delayed release(DR/EC) 20 mg PO HS Qty: 90 RF: 0 tretinoin [Retin-A] 0.025 % cream 1 applic TP QHS RF: 0 lorazepam 0.5 mg tablet 0.5 mg PO HS PRN (Reason: sleep) Qty: 28 RF: 2 fluoxetine [Prozac] 40 MG capsule 40 mg PO DAILY RF: 0 docusate sodium [Stool Softener] 100 MG capsule 100 mg PO DAILY PRNRF: 0 tramadol 50 mg tablet 50 mg PO DAILY PRN (Reason: pain) Qty: 20 RF: 0 fluticasone propionate 50 mcg/actuation spray,suspension 1 spray NS HS PRN (Reason: nasal congestion) Qty: 1 RF: 3 doxazosin 4 mg tablet 4 mg PO HS Qty: 90 RF: 3 lisinopril [Prinivil] 10 MG tablet 5 mg PO DAILY RF: 0 Fish Oil 1 EACH capsule 1 ea PO DAILY RF: 0 PreserVision AREDS-2 [id number]-mg Capsule 1 tab PO BID RF: 0 Discontinued ibuprofen 400 mg tablet 400 mg PO BID PRNRF: 0 Discharge Instructions Additional Instructions: Elevate right leg when sitting. Walker to ambulate. May put as much weight on right leg as discomfort allows. Continue use a walker or cane as long as you limp. May shower and get dressing wet. Let the dressing gradually fall off by itself. Apply Cryo/Cuff to right knee 4 times a day for an hour each time. Outpatient PT at [facility]' later this week for total knee rehab right. Wrapped right knee with Matt bandage or use the long leg elastic stocking during the daytime to help decrease swelling. Do not use any compression dressings at night. Take 1 baby aspirin (81 mg) twice a day for 30 days to prevent blood clots in the legs. Take Celebrex as prescribed to decrease inflammation and swelling. Take hydrocodone for breakthrough pain, if needed. Follow-up with Dr. Krause in 1 week. Care Plan Goals: Independent ambulation and ADLs Stand Alone Forms: Nursing Discharge Form Referrals: Odell Krause MD [ [facility] STAFF PHYSICIAN] - Activity:: Activity as Tolerated Equipment/Supplies:: Walker Diet:: As Tolerated Discharge Orders Discharge Orders: Discharge Order (Routine); Ordered 04/10/20 Ordered By: Odell Krause DS: Summary Status at Discharge Functional status at discharge: uses cane/walker Overall status at discharge: patient is not back to baseline Mental Status: mental status grossly normal Speech and Movement: speech and movement normal Mood: congruent mood Affect: normal affect Exam Psych Mental Status: mental status grossly normal Speech and Movement: speech and movement normal Mood: congruent mood Affect: normal affect DS: Data Vitals/I&O Vitals and I&O: Vital Signs Temperature 36.7 C 04/10/20 07:15 Temperature Source Tympanic 04/10/20 07:15 Pulse 64 04/10/20 07:15 Pulse Rhythm Regular 04/10/20 07:45 Respiratory Rate 18 04/10/20 07:15 Respiratory Effort Non-Labored 04/10/20 07:45 Respiratory Depth Normal 04/10/20 07:45 Respiratory Pattern Normal 04/10/20 07:45 Blood Pressure 163/78 H 04/10/20 07:15 Pulse Oximetry 96 04/10/20 07:15 Oxygen Delivery Method Room Air 04/10/20 07:15 Oxygen Flow Rate 0 04/10/20 07:15 Pain Level 6 04/10/20 09:39 Comment 04/09/20 03:25 Intake & Output 04/09/20 04/09/20 04/10/20 11:59 23:59 11:59 Intake Total 480 / 710 230 / 710 Output Total 930 / 930 Balance 480 / 710 230 / 710 -920 / -920 Intake: IV Oral 480 / 700 220 / 700 Output: Urine 930 / 930 Other: Urine Color Yellow Yellow Urine Appearance Clear Clear Clear Urine Odor Normal Normal Voiding Methods Toilet Urinal PFSH Social History (Updated 11/21/19 @ 14:44 by Pearl Tillman) Smoking/Tobacco Use Status: Former Tobacco Use Alcohol Intake: current Alcohol Intake frequency: 0-2 drinks per day Alcohol type: wine Drug use: Never Substance use type: does not use Details: alcohol:t-1, three ounces Adopted: No Caregiver/Support person: No Foster care: No Household members: none Housing: apartment Do you need help understanding health information?: Rarely current occupation: Retired Sexually active: Yes Do you think of yourself as: straight/heterosexual Current gender identity: male Do you feel safe at home: Yes Do you feel safe in your relationship?: Yes
--- NOTE | 2020-04-10 11:52 | PT.INDS ---
Date of service: 04/10/20 Time of Service: 09:00 PT Notes Visit Reasons: POST OP R TOTAL KNEE Inpatient Physical Therapy Discharge Summary Dates: April 10, 2020 Dates of Service: 04/06/20-04/10/20 SUBJECTIVE: Lavon feels that his pain has been much better. He notes following PT exercises it does increase a little however is now more confident with his transfers and mobility. He notes that he will be going home later today. OBJECTIVE: Pain: 5/10 Right Upper Extremity: Shoulder Flexion WFL. Shoulder abduction WFL. Elbow flexion WFL. Wrist flexion WFL. Opening and closing of hand WFL. Left Upper Extremity: Shoulder Flexion WFL. Shoulder abduction WFL. Elbow flexion WFL. Wrist flexion WFL. Opening and closing of hand WFL. Right Lower Extremity: Hip flexion allows up to 90 degrees. Hip abduction WFL. Knee flexion 80 degrees. Ankle dorsiflexion about 10 degrees. Ankle plantarflexion WFL. Left Lower Extremity: Hip flexion WFL. Hip abduction WFL. Knee flexion WFL. Ankle dorsiflexion WFL. Ankle plantarflexion WFL. Strength: Right Upper Extremity: Shoulder flexors 5/5. Shoulder abductors 5/5. Elbow flexors 5/5. Elbow extensors 5/5. Steel Worker strong. Left Upper Extremity: Shoulder flexors 5/5. Shoulder abductors 5/5. Elbow flexors 5/5. Elbow extensors 5/5. Steel Worker strong. Right Lower Extremity: Hip flexors 4/5. Hip abductors 4/5. Independent SLR right. Ankle dorsiflexors 4/5. Ankle plantarflexors 4/5. Left Lower Extremity:Hip flexors 5/5. Hip abductors 5/5. Knee flexors 5/5. Knee extensors 5/5. Ankle dorsiflexors 5/5. Ankle plantarflexors 5/5. BED MOBILITY/TRANSFERS: Supine-sit independent Sit-supine independent Sit-stand independent Stand-sit independent Bed-Chair supervision with use of front wheel walker Chair-bed supervision with use of front wheel walker GAIT: FWW, WBAT R LE, Supervision, 120+ feet, improving ashley BALANCE: Static sitting: Normal Dynamic sitting: Normal Static standing: Good Dynamic standing: Good Stairs: Patient tolerated eight 4-inch steps and three 6-inch steps while holding onto bilateral rails with step-to gait pattern with supervision. No cueing necessary. Assessment: Lavon is a 74 year old male s/p right TKA. Demonstrates improved functional mobility with independent bed mobility and transfers. Supervision only with use of front wheeled walker. Up and about his room with FWW on his own to go to bathroom and wash up. ROM and strength continue to improve. Demonstrates good static and dynamic balance. Goals: Goals X1 week 1. Supine-Sit independent (MET) 2. Sit-Supine independent (MET) 3. Sit-Stand independent (MET) 4. Stand-Sit independent (MET) 5. Bed-Chair independent (supervision ) 6. Chair-Bed independent (supervision) 7. Independent gait on level surface with use of least restrictive device for at least 300 feet without report of pain nor dyspnea (not met progressing towards) 8. Independent stair negotiation while holding onto bilateral rails for at least 10 steps without report of pain nor dyspnea (MET) 9. Independent with home exercise program (MET) 10. Good static and dynamic standing balance/tolerance (MET) DISCHARGE PLAN/RECOMMENDATIONS: Patient will benefit from home health PT services or outpatient PT services depending on transportation at this time in order to progress mobility level using least restrictive assistive ambulatory device, assess home safety, identify additional equipment needs, and establish a functional maintenance program that will increase ability of patient to remain at home. [id number] 25 minutes, 9:00 AM AMISH Wynn
[2020-04-10] MEDS: oxyCODONE-CR 10 MG TABCR PO (12:46)
--- NOTE | 2020-04-10 14:04 | PDOC.HHF2F_ITS ---
Home Health Certification Home Health Certification: 1. Encounter Date and Reason I certify that JOEL MARTIN was seen by Odell Krause MD on 04/10/20 and that I had a [id number] encounter with this patient that meets the physician face to face encounter requirements. 2. Clinical Findings Supporting Skilled Need and Homebound Status I certify that home health services are medically necessary, include either intermittent chcf and/or physical/speech therapy, and that this pat ient is homebound in that absences from the home require considerable and taxing effort and are infrequent or of short duration, or are attributable to the need to receive medical care. [X] (a) Attached documentation from encounter provides clinical findings supporting skilled need and homebound status (including what assistance patient requires to leave the home). The encounter with the patient was in whole, or in part, for the following medical condition, which is the primary reason for home health care: POST OP R TOTAL KNEE Detention: Physical Therapy: Range of motion strengthening of right knee following total knee replacement. Also gait training. Speech Therapy: Homebound: Patient meets criteria for homebound due to right total knee replacement on 04/06/2020, cannot drive and lives alone. 3. Certification and Authentication I certify that I composed the above information based on my clinical judgement relating to this patient's medical condition and, if applicable, clinical findings communicated to me by the NPP or inpatient physician who performed the Home Health Referral. All further orders will be obtained through (Community Based Physician - PCP)
[2020-04-10 15:10] VITALS: BP 143/73; PULSE 66; RESP 18; TEMP 36.9; O2SAT 98
--- NOTE | 2020-04-10 15:21 | CMDISCH_ITS ---
- If Service Date Differs Date of service: 04/10/20 Time of Service: 15:21 LACE Index Scoring Tool - Questions: Length of Stay (in days): 4 - 6 Acuity (Admit via E.D.?): No Comorbidities: Any Tumor E.D. Visits: 0 - Answers: Total Score: 6 Risk of Readmission: Low Risk Care Management Discharge Reason for Hospitalization: R Total Knee Discharge Plan: Lavon will be discharged home with new orders for PT. He will follow up with his surgeon and PCP and discharge plan of care. Laovn lives alone but his daughter Susi will come from [facility] to stay with and help him for a week. He will transport via private vehicle with Susi. Patient/Family Education Needs: Discharge plan, limitations. follow up plan and Ask Me Three.
== END 2020-04-10 17:28 | disposition home or self-care (01) | DRG 470 ==
LOC: PDS 05:58 → MS 12:50
PROVIDERS: Admitting Provider Orthopaedic Surgery; PCP Family Medicine; Visit Provider Orthopaedic Surgery
PROC: 0SRC0J9 Replacement of Right Knee Joint with Synthetic Substitute, Cemented, Open Approach (ICD-10-PCS; CPT 27447; principal; 2020-04-06 07:30)
DX: M17.11 Unilateral primary osteoarthritis, right knee (principal); M25.561 Pain in right knee; Z96.651 Presence of right artificial knee joint; G89.18 Other acute postprocedural pain; N40.0 Benign prostatic hyperplasia without lower urinary tract symptoms; I10 Essential (primary) hypertension; K21.9 Gastro-esophageal reflux disease without esophagitis
CPT/HCPCS: 27447; 36415; 76942; 85027; 97110; 97116; 97162; 97530; J1650; NC; 73560; J0690; J1885; J2250; J2270; J3010; L1830

== ENCOUNTER → 2020-04-17 11:55 | Outpatient (BNVA) | payer MEDICARE, OTHER, SELFPAY | PROVIDERS: PCP Family Medicine; Referring Provider Family Medicine; Visit Provider Orthopaedic Surgery | DX: Z47.1 Aftercare following joint replacement surgery (principal); Z96.651 Presence of right artificial knee joint ==

== ENCOUNTER → 2020-04-24 11:52 | Outpatient (BNVA) | payer MEDICARE, OTHER, SELFPAY | PROVIDERS: PCP Family Medicine; Referring Provider Family Medicine; Visit Provider Orthopaedic Surgery | DX: Z47.1 Aftercare following joint replacement surgery (principal); Z96.651 Presence of right artificial knee joint ==

== ENCOUNTER → 2020-05-22 10:44 | Outpatient (BNVA) | payer MEDICARE, OTHER, SELFPAY | PROVIDERS: PCP Family Medicine; Referring Provider Family Medicine; Visit Provider Orthopaedic Surgery | DX: Z96.651 Presence of right artificial knee joint (principal); Z47.1 Aftercare following joint replacement surgery ==

== ENCOUNTER → 2020-07-03 09:57 | Outpatient (BNVA) | payer MEDICARE, OTHER, SELFPAY | PROVIDERS: PCP Family Medicine; Visit Provider Orthopaedic Surgery | DX: Z47.1 Aftercare following joint replacement surgery (principal); Z96.651 Presence of right artificial knee joint ==

== ENCOUNTER 2020-07-11 02:34 | Outpatient (CLI) | payer MEDICARE, OTHER, SELFPAY ==
[2020-07-11 09:25] LABS: Abs Immature Grans 0.01 10^3/uL (0.0-0.06); Absolute Basophil Count 0.02 10^3/uL (0.0-0.2); Absolute Eosinophil Count 0.31 10^3/uL (0.0-0.7); Absolute Lymphocyte Count 0.92 10^3/uL (1.2-3.4); Absolute Monocyte Count 0.72 10^3/uL (0.1-0.8); Absolute Neutrophil Count 3.15 10^3/uL (1.2-6.7); Basophils % 0.4; HCT 38.1 % (40.0-50.0); HGB 12.6 g/dL (13.5-17.5); Immature Grans % 0.2; Lymphocytes % 17.9; MCH 27.9 pg (27.0-33.0); MCHC 33.1 % (32.0-36.0); MCV 84.5 fL (80-95); MPV 8.5 fL (8.0-11.0); Neutrophils % 61.5; Nucleated RBC 0 %; Platelet Count 221 10^3/uL (130-400); RBC 4.51 10^6/uL (4.36-5.78); RDW 14.5 % (11.8-14.1); RDW-SD 44.5 fL; WBC 5.13 10^3/uL (4.4-10.8)
[2020-07-11 10:40] LABS: ALT 27 U/L (16-63); AST 24 U/L (15-37); Albumin 3.9 g/dL (3.4-5.0); Alkaline Phosphatase 90 U/L (46-116); Anion Gap 6.7 mmol/L (3-11); BUN 11 mg/dL (7-18); Bilirubin, Total 0.3 mg/dL (0.2-1.0); CO2 28.3 mmol/L (21.0-32.0); Calcium 9.2 mg/dL (8.5-10.1); Calculated LDL 107 mg/dL (<100); Chloride 93 mmol/L (98-107); Cholesterol 182 mg/dL (<200); Glucose 89 mg/dL (74-106); HDL Cholesterol 67 mg/dL (40-60); Potassium 4.5 mmol/L (3.5-5.1); Sodium 128 mmol/L (136-145); Total Protein 6.9 g/dL (6.4-8.2); Triglyceride 44 mg/dL (<150)
== END 2020-07-11 02:54 ==
PROVIDERS: PCP Family Medicine; Visit Provider Family Medicine
DX: I10 Essential (primary) hypertension (principal); Z13.6 Encounter for screening for cardiovascular disorders
CPT/HCPCS: 80053; 80061; 85025

== ENCOUNTER 2020-08-02 17:27 | Outpatient (REF) | payer MEDICARE, OTHER, SELFPAY ==
[2020-08-02 16:23] LABS: Sodium, Urine 67 mmol/L
[2020-08-02 16:31] LABS: CLEAVED CELLS 94 mmol/24h (40-220); Total Volume 1400 ml
[2020-08-02 22:04] LABS: Osmolality, Urine 364 mOsm/kg (150-1,150)
== END 2020-08-02 17:47 ==
LOC: LBN 17:27
PROVIDERS: PCP Family Medicine; Visit Provider Family Medicine
DX: E87.1 Hypo-osmolality and hyponatremia (principal)
CPT/HCPCS: 83935; 81050; 84300

== ENCOUNTER → 2020-08-14 10:27 | Outpatient (BNVA) | payer MEDICARE, OTHER, SELFPAY | PROVIDERS: PCP Family Medicine; Visit Provider Orthopaedic Surgery | DX: Z47.1 Aftercare following joint replacement surgery (principal); Z96.651 Presence of right artificial knee joint; I10 Essential (primary) hypertension | CPT/HCPCS: 99213 ==

== ENCOUNTER 2021-05-20 03:08 | Outpatient (CLI) | payer MEDICARE, OTHER, SELFPAY ==
[2021-05-20 11:47] LABS: Anion Gap 9.2 mmol/L (3-11); BUN 15 mg/dL (7-18); CO2 26.8 mmol/L (21.0-32.0); Calcium 9.2 mg/dL (8.5-10.1); Chloride 94 mmol/L (98-107); Glucose 91 mg/dL (74-106); Potassium 4.8 mmol/L (3.5-5.1); Sodium 130 mmol/L (136-145); TSH (W/Ref FT4) 2.33 uIU/mL (0.36-3.74)
[2021-05-21 15:19] LABS: Adrenocorticotropic Hormone, P 98 pg/mL
== END 2021-05-20 03:09 | disposition home or self-care (01) ==
PROVIDERS: PCP Family Medicine; Visit Provider Family Medicine
DX: I10 Essential (primary) hypertension (principal); E87.1 Hypo-osmolality and hyponatremia
CPT/HCPCS: 36415; 80048; 82024; 84443

== ENCOUNTER 2021-08-19 10:17 | Outpatient (CLI) | payer MEDICARE, OTHER, SELFPAY ==
--- NOTE | 2021-08-19 10:00 | DI.RAD_ITS ---
Exam(s) XR KNEE RT 2V AP,LAT EXAM: XR KNEE RT 2V AP,LAT CLINICAL HISTORY: f/u R TKA. TECHNIQUE: 2D digital imaging was performed. COMPARISON: CR XR KNEE RT 2V AP,LAT from 04/06/2020 FINDINGS: Stable position alignment of the components of the prosthesis. However, there is linear lucency subj acent to the medial aspect of the tibial component, possibly significant. Correlation with any clini eder signs of loosening recommended. There is no radiographic evidence of osteomyelitis. IMPRESSION: DATA REPOSITORY: RADIATION DOSE DELIVERED:
== END 2021-08-19 10:18 | disposition home or self-care (01) ==
LOC: DIORS 10:17
PROVIDERS: PCP Family Medicine; Referring Provider Family Medicine; Visit Provider Student in an Organized Health Care Education/Training Program
DX: Z47.1 Aftercare following joint replacement surgery (principal); Z96.651 Presence of right artificial knee joint
CPT/HCPCS: 99212; 73560

== ENCOUNTER 2021-09-17 02:52 | Outpatient (CLI) | payer MEDICARE, OTHER, SELFPAY ==
[2021-09-17 13:00] LABS: Anion Gap 4.9 mmol/L (3-11); BUN 16 mg/dL (7-18); CO2 30.1 mmol/L (21.0-32.0); CREATININE 0.9 mg/dL (0.70-1.30); Calcium 9.1 mg/dL (8.5-10.1); Chloride 95 mmol/L (98-107); Glucose 74 mg/dL (74-106); Potassium 4.8 mmol/L (3.5-5.1); Sodium 130 mmol/L (136-145)
== END 2021-09-17 02:53 | disposition home or self-care (01) ==
LOC: LBO 02:52
PROVIDERS: PCP Family Medicine; Visit Provider Internal Medicine Endocrinology, Diabetes & Metabolism
DX: E87.1 Hypo-osmolality and hyponatremia (principal)
CPT/HCPCS: 36415; 80048; 84443

== ENCOUNTER 2021-09-27 00:40 | Outpatient (CLI) | payer MEDICARE, OTHER, SELFPAY ==
--- NOTE | 2021-09-27 | DI.DEXA_ITS ---
Exam(s) XR DEXA BONE DENSITY W/WO ZOIAL EXAM: XR DEXA BONE DENSITY W/WO ZOILA CLINICAL HISTORY: OSTEOPOROSIS,M81.0,H/O CHRONIC BACK PAIN TECHNIQUE: COMPARISON: CR lsp xray from 01/06/2006 FINDINGS: DEXA scan was performed according to the usual protocol. The lateral vertebral scanogram shows no ev idence of a vertebral compression fracture. Left hip scanning shows T-score 0.7 with left femoral neck T-score -0.7. Lumbar spine scanning shows T-score 4.5. Left forearm scanning shows T-score -0.9. IMPRESSION: The findings are consistent with normal bone density according to the WHO criteria. RADIATION DOSE DELIVERED: Total DLP
== END 2021-09-27 01:00 ==
PROVIDERS: PCP Family Medicine; Visit Provider Internal Medicine Endocrinology, Diabetes & Metabolism
DX: M81.0 Age-related osteoporosis without current pathological fracture (principal); Z13.820 Encounter for screening for osteoporosis
CPT/HCPCS: 77080

== ENCOUNTER 2022-04-21 10:02 | Outpatient (CLI) | payer MEDICARE, OTHER, SELFPAY ==
--- NOTE | 2022-04-21 10:00 | DI.RAD_ITS ---
Exam(s) XR KNEE RT 2V AP,LAT EXAM: XR KNEE RT 2V AP,LAT INDICATION: annual f/u R TKA. COMPARISON: CR XR KNEE RT 2V AP,LAT from 04/06/2020 CR XR KNEE RT 2V AP,LAT from 08/19/2021 TECHNIQUE: 2D digital imaging was performed. Two views. FINDINGS: There is again noted to be lucency adjacent to the tibial component of the knee prosthesis. There is now a slight lucency visible at the to the patellar component. Findings could indicate loosening. There is a small joint effusion. Vascular calcifications are noted. No abnormal lucencies in the di stal femur. DATA REPOSITORY: RADIATION DOSE DELIVERED:
== END 2022-04-21 10:03 | disposition home or self-care (01) ==
LOC: DIORS 10:02
PROVIDERS: PCP Family Medicine; Referring Provider Family Medicine; Visit Provider Student in an Organized Health Care Education/Training Program
DX: Z96.651 Presence of right artificial knee joint (principal)
CPT/HCPCS: 99213; 73560

== ENCOUNTER 2022-12-08 03:28 | Outpatient (CLI) | payer MEDICARE, OTHER, SELFPAY ==
[2022-12-08 15:32] LABS: Anion Gap 7.1 mmol/L (3-11); BUN 16 mg/dL (7-18); CO2 28.9 mmol/L (21.0-32.0); Calcium 8.8 mg/dL (8.5-10.1); Chloride 95 mmol/L (98-107); Estimated GFR 77.04 (mL/min/1.73m2); Glucose 104 mg/dL (74-106); Potassium 4.2 mmol/L (3.5-5.1); Sodium 131 mmol/L (136-145)
== END 2022-12-08 03:29 | disposition home or self-care (01) ==
LOC: LBO 03:28
PROVIDERS: PCP Family Medicine; Visit Provider Family Medicine
DX: E87.1 Hypo-osmolality and hyponatremia (principal)
CPT/HCPCS: 36415; 80048

== ENCOUNTER 2023-06-09 02:30 | Outpatient (CLI) | payer MEDICARE, SELFPAY ==
--- NOTE | 2023-06-09 08:00 | DI.MRI_ITS ---
Exam(s) MR LUMBAR SPINE WO/W EXAM: MR LUMBAR SPINE WO/W CLINICAL HISTORY: evaL RT SI Joint,SPINAL STENOSIS,LUMBAR RADICULOPATHY. TECHNIQUE: Multiplanar multisequence MRI of the Lumbar spine was performed. As per request, both pre and post contrast infused sequences were performed. Contrast injected was 14 mL IV Dotarem COMPARISON: MR MRI - LUMBAR SPINE W/WO CONT from 05/21/2017 Scanned documents from 07/28/[address] pelvic wo from 08/08/2019 FINDINGS: Five lumbar vertebrae are presumed. OSSEOUS: There is fixation hardware of the right SI joint noted, comprised of 2 parallel cylindrical fixation devices across the right SI joint, as were also seen on prior CT scan of July 2019. There is no ankylosis/fusion across the right SI joint. There are no fractures nor ominous osseous lesions. No evidence of discitis nor osteomyelitis. No e vidence of epidural nor paraspinal abscess. There is degenerative scoliosis convex right. Conus medullaris is at normal level. There is no evidence of conus mass nor subjacent clumping of in trathecal nerve roots to suggest arachnoiditis. The distal thecal sac appears unremarkable.There is no evidence of Tarlov intrasacral cysts nor other significant findings within the sacral canal With respect to the individual levels... T12-L1: There is advanced uniform chronic disc space narrowing at this level evident. There is broad annular bulging but without a dominant disc herniation. Central canal dimensions are lower normal. There is bilateral vertical foraminal stenosis, slightly more prominent on the right side. Mild fac et joint degenerative changes. L1-2: There is advanced disc space narrowing at this level, more so on the left side where there are lateral left osteophytes also evident. There is posterior annular bulging. This extends into the ex iting neural foramina. There is also mild degenerative retrolisthesis of L1 upon L2. There is mild central canal stenosis at this level.Mild foraminal stenosis on the right side. More severe foramina l stenosis evident on the left side. L2-3: This level also exhibits chronic advanced disc space narrowing, again more so on the left side where there are also left lateral osteophytes. There is diffuse annular bulging at this level noted. Mild central spinal canal stenosis. Severe foraminal stenosis on the left side. Mild foraminal st enosis on the right side. L3-4: This level exhibits severe advanced uniform disc space narrowing. Also mild retrolisthesis of L3 upon L4. Posterior annular bulging. There is severe central spinal canal stenosis at this level. There is severe right-sided foraminal stenosis. Moderate left-sided foraminal stenosis. Moderate facet arthropathy. L4-5: This level exhibits chronic advanced disc space narrowing. Broad annular bulging. Mild centra l canal stenosis. There is severe foraminal stenosis on the right side. Mild foraminal stenosis on the left side. Degenerative changes in the facet joints are more prominent on the right side. L5-S1: This level exhibits chronic severe symmetrical disc space narrowing. Broad annular bulging no yoly. Moderate central spinal canal stenosis. There is severe bilateral foraminal stenosis this leve l which is related to annular bulging into the floor of the exiting neural foramina bilaterally as we ll as vertical height loss, with the exiting nerve roots impinged between the overlying L5 pedicles a nd the subjacent bulging annulus. Moderate bilateral facet arthropathy. Soft tissues: paraspinal soft tissues appear unremarkable. IMPRESSION: 1. Advanced multilevel degenerative changes as described individually above. 2. Most severe central spinal canal stenosis is L3-4 level. 3. Asymmetric multilevel advanced neural foraminal stenosis as described above. 4. There is no significant abnormal intraosseous enhancement. No evidence of obvious epidural nor p araspinal abscess. Right sacroiliac joint fixation devices again noted. DATA REPOSITORY:
--- NOTE | 2023-06-09 08:00 | DI.MRI_ITS ---
Exam(s) MR PELVIS WO/W EXAM: MR PELVIS WO/W CLINICAL HISTORY: evaL RT SI Joint,PAIN TECHNIQUE: Multisequence MRI scan performed with both pre and post contrast infused sequences. Contr ast injected was IV Dotarem 14 mL. COMPARISON: CT scan of the abdomen performed July 2019 was reviewed FINDINGS: Bones: There are 2 parallel fixation devices across the right SI joint. There is no offset of the SI joint. No fusion evident across the SI joint. No abnormal intraosseous signal at this level nor el sewhere in bones of sacrum, pelvis, and hips. No evidence of stress fractures nor avascular necrosis in the hips. Mild degenerative changes in the hips evident. Soft tissues:: No abnormal findings. No masses nor abnormal fluid collections. IMPRESSION: 1. Right sacroiliac joint fixation devices. No abnormal intraosseous signal. 2. No significant abnormal soft tissue findings. 3. Mild degenerative changes in both hips. See separate lumbar spine MRI dictation. DATA REPOSITORY:
[2023-06-09 12:16] LABS: Anion Gap 7.6 mmol/L (3-11); BUN 15 mg/dL (7-18); CO2 27.4 mmol/L (21.0-32.0); Calcium 9.1 mg/dL (8.5-10.1); Chloride 96 mmol/L (98-107); Estimated GFR 77.04 (mL/min/1.73m2); Glucose 95 mg/dL (74-106); Potassium 4.3 mmol/L (3.5-5.1); Sodium 131 mmol/L (136-145)
[2023-06-09] MEDS: Gadoterate meglumine 20 ML VIAL IVP (13:29)
[2023-06-09] MEDS: Normal Saline Flush 10 ML SYR IVP (13:30)
--- NOTE | 2023-06-09 15:22 | DI.VRAD_ITS ---
PROCEDURE INFORMATION: Exam: MR Pelvis Without and With Contrast, Sacrum Exam date and time: 06/09/2023 1:15 PM Age: 77 years old Clinical indication: Screening exam; Prior surgery; Surgery date: 6+ months; Surgery type: Right si joint - 3 years ago TECHNIQUE: Imaging protocol: Magnetic resonance imaging of the pelvis without and with contrast. Exam focused on the sacrum. Contrast material: DOTAREM; Contrast volume: 14 ml; Contrast route: INTRAVENOUS (IV); COMPARISON: CT pelvic wo 08/08/2019 8:37 AM FINDINGS: Bones/joints: Previous hardware fixation of the right sacroiliac joint. Advanced degenerative changes lower lumbar spine. No acute fracture. No joint effusion. No significant inflammatory changes Soft tissues: Unremarkable. IMPRESSION: Are seen. Advanced lower lumbar DJD. Prior fixation of the right SI joint without acute abnormality. Additional findings as described. Dictated and Authenticated by: Madiha Mathis MD. Ordering:DENIZ Flores MD
--- NOTE | 2023-06-09 15:25 | DI.VRAD_ITS ---
PROCEDURE INFORMATION: Exam: MR Lumbar Spine Without and With Contrast Exam date and time: 06/09/2023 12:43 PM Age: 77 years old Clinical indication: Pain; Other: Si joints; Prior surgery; Surgery date: 6+ months; Surgery type: Right si joint - 3 years ago TECHNIQUE: Imaging protocol: Magnetic resonance imaging of the lumbar spine without and with contrast. Contrast material: DOTAREM; Contrast volume: 14 ml; Contrast route: INTRAVENOUS (IV); COMPARISON: MRI - LUMBAR SPINE W/WO CONT 05/21/2017 3:14 PM FINDINGS: Bones/joints: Previous hardware fixation of the right SI joint. Moderate dextrocurvature with advanced multilevel degenerative disc disease and facet arthritis in the lower lumbar spine. No joint effusion, acute fracture or evidence of osteomyelitis or discitis.There is moderate multilevel central spinal stenosis, secondary to disc buldge/osteophytic spurring. Spinal cord: Visualized cord, conus medullaris and cauda equina are unremarkable without compression. L1-L2: Diffuse disc bulge. No severe spinal canal stenosis. Moderate left neural foraminal narrowing. L2-L3: Diffuse disc bulge. Borderline spinal canal stenosis. Severe left neural foraminal narrowing. L3-L4: Significant central stenosis with compression of the cauda equina nerve roots secondary to posterior osteophytic spur/disc bulges at this level with severe right foraminal stenosis. No severe spinal canal stenosis. No significant neural foraminal narrowing. L4-L5: No significant disc bulge or herniation. No severe spinal canal stenosis. Moderate left and severe right foraminal stenosis L5-S1: Diffuse disc bulge. No severe spinal canal stenosis. Moderate to severe bilateral neural foraminal narrowing. Soft tissues: Unremarkable. IMPRESSION: Advanced multilevel degenerative changes, with central stenosis at L3-L4 and compression of the cauda equina nerve roots. Additional findings as described. Dictated and Authenticated by: Madiha Mathis MD. Ordering:DENIZ Flores MD
== END 2023-06-09 02:50 ==
LOC: DI 02:30
PROVIDERS: PCP Family Medicine; Visit Provider Student in an Organized Health Care Education/Training Program
DX: M53.3 Sacrococcygeal disorders, not elsewhere classified (principal); M54.17 Radiculopathy, lumbosacral region; G89.29 Other chronic pain; R79.89 Other specified abnormal findings of blood chemistry; M16.0 Bilateral primary osteoarthritis of hip; M48.07 Spinal stenosis, lumbosacral region; I10 Essential (primary) hypertension; F41.1 Generalized anxiety disorder
CPT/HCPCS: 72158; 72197; 80048

== ENCOUNTER → 2023-10-26 19:24 | Outpatient (CLI) | payer MEDICARE, SELFPAY ==
--- NOTE | 2023-10-26 11:45 | DI.RAD_ITS ---
Exam(s) XR CHEST 2V PA LATERAL EXAM: XR CHEST 2V PA LATERAL CLINICAL HISTORY: SOB R06.02 TECHNIQUE: 2D digital imaging was performed of the chest. Two images were obtained. PA and lateral views were obtained. COMPARISON: There are no priors for comparison. FINDINGS: MEDIASTINUM: Normal. HEART: Normal. PULMONARY VASCULATURE: Normal. LUNGS: Clear. PLEURAL SPACE: No pleural effusion or pneumothorax. BONE:Within normal limits for the patient's age. OTHER FINDINGS:There is elevation of the right hemidiaphragm. IMPRESSION: No acute pulmonary findings. DATA REPOSITORY: RADIATION DOSE DELIVERED:
== END ==
PROVIDERS: PCP Family Medicine; Visit Provider Emergency Medicine
DX: R06.02 Shortness of breath (principal)
CPT/HCPCS: 36415; 71046; 85025; 85379

== ENCOUNTER 2023-10-26 19:32 | Outpatient (CLI) | payer MEDICARE, SELFPAY ==
[2023-10-26 12:37] LABS: Abs Immature Grans 0.04 10^3/uL (0.0-0.06); Absolute Basophil Count 0.04 10^3/uL (0.0-0.2); Absolute Eosinophil Count 0.19 10^3/uL (0.0-0.7); Absolute Lymphocyte Count 0.81 10^3/uL (1.2-3.4); Absolute Monocyte Count 0.86 10^3/uL (0.1-0.8); Basophils % 0.5; Eosinophils % 2.2; HCT 37.3 % (40.0-50.0); HGB 12.5 g/dL (13.5-17.5); Immature Grans % 0.5; Lymphocytes % 9.5; MCH 29.1 pg (27.0-33.0); MCHC 33.5 % (32.0-36.0); MCV 87 fL (80-95); MPV 8.9 fL (8.0-11.0); Monocytes % 10.1; Neutrophils % 77.2; Platelet Count 286 10^3/uL (130-400); RBC 4.29 10^6/uL (4.36-5.78); RDW 13.2 % (11.8-14.1); RDW-SD 42.2 fL; WBC 8.54 10^3/uL (4.4-10.8)
[2023-10-26 13:07] LABS: D-Dimer 1260 ng/mlFEU (<500)
== END 2023-10-26 19:33 | disposition home or self-care (01) ==
LOC: LBO 19:32
PROVIDERS: Emergency Medicine; PCP Family Medicine; Visit Provider Family Medicine
DX: R06.02 Shortness of breath (principal)
CPT/HCPCS: 36415; 85025; 85379